=== PATIENT | female | born 1985 | race Caucasian/White ===

== ENCOUNTER 2021-02-01 14:21 | Inpatient (IN) ==
--- NOTE | 2021-02-01 14:58 | Emergency Department Note ---
Impression & Plan Leukopenia, Neutropenia, Cellulitis, Suicidal ideations ED Provider Note NAME: DON GARIBAY AGE: 35 SEX: F : 1985 ARRIVES VIA: Ambulance INFORMANT: Patient ED PROVIDER(S): Genaro King DO CHIEF COMPLAINT: Suicidal thoughts HPI: Patient is a 35-year-old female who presents the ER for passive suicidal thoughts which have been present since the end of December. She denies any current plan. She notes that she is very depressed and has a tough time a year for her. She denies any headache or change in vision. Her alcohol was in the 200s. No chest pain or shortness of breath. No belly pain nausea vomiting or diarrhea. She notes that her digits are always swollen and that is not new. ROS: See above HPI for pertinent positives & negatives. A total of 10 systems reviewed and were otherwise negative. PAST MEDICAL HISTORY:See Below PAST SURGICAL HISTORY:See Below FAMILY HISTORY:See Below SOCIAL HISTORY:See Below HOME MEDICATIONS:See Below ALLERGIES:See Below VITALS:See Below PHYSICAL EXAMINATION: GENERAL: Sitting up in bed, alert, well appearing, well nourished, no distress, non-toxic EYE EXAM: normal conjunctiva. PERRL and EOM's grossly intact. OROPHARYNX: no exudate, no erythema, lips, buccal mucosa, and tongue normal and mucous membranes are moist NECK: supple, no nuchal rigidity, no adenopathy, non-tender LUNGS: Clear to auscultation. Normal chest wall mechanics HEART: no murmurs, S1 normal and S2 normal ABDOMEN: abdomen soft, non-tender, normo-active bowel sounds, no masses, no rebound or guarding. SKIN: no rashes and no bruising UPPER EXTREMITIES: Flexion-extension the shoulders, elbows wrist grasp and abduction of digits intact. Radial pulse 2 out of 4. Multiple old scars on the arms. Digits are all swollen. Left hand with erythema over the first second and third digit tracking down to the palm. Right hand with a linear crack over the third digit at the PIP with swelling and erythema. Skin is warm and tender. LOWER EXTREMITIES: No pitting edema. NEURO EXAM: Normal sensorium, cranial nerves II-XII grossly intact, normal speech, no gross weakness of arms, no gross weakness of legs. PSYCH: Admits to suicidal ideations but no clear plan MEDICAL DECISION MAKING: Patient is a 35-year-old female sent here from the [facility] for suicidal ideations with no clear plan. IV was established blood was obtained. Labs show mild leukopenia 4000 with a neutropenia of 900. BMP with slightly elevated chloride. LFTs bilirubin and hCG was negative. Alcohol was slightly elevated at 117. Valproic acid and acetaminophen were negative. Salicylates were 4. Covid was ordered initially trying to place the patient but when she was found to be neutropenic with a cellulitis this would be difficult to place in a psychiatric facility. Discussed with her hospitalist Sidra for tachycardia for admission. Patient was given daptomycin IV. She was updated bedside. Triage Nursing notes reviewed. Limited review of prior medical records performed Vital Signs: reviewed and remarkable for no significant abnormalities Differential diagnosis: Mood disorder, infection, hypoglycemia, electrolyte abnormalities, cardiac sources, intracerebral event, toxicologic, trauma, neurologic, as well as other pathologies. ER treatment provided: See below Diagnostics interpreted by me: ECG: none Laboratory studies: As stated above and show below. Imaging studies: X-ray of the hand and elbow showed no acute fractures. Consultation(s): Discussed with Sidra for further evaluation Procedures: none Critical Care: None Past Med/Surg History Medical History (Updated 02/01/21 @ 20:41 by Genaro King DO) Alcohol abuse Anxiety Asthma Bipolar affective (11/02/13) Drug abuse GERD (gastroesophageal reflux disease) Hepatitis C HTN (hypertension) MRSA (methicillin resistant staph aureus) culture positive PTSD (post-traumatic stress disorder) Rheumatoid arthritis Seizure disorder Solitary kidney, congenital Tobacco abuse Surgical History (Updated 02/01/21 @ 18:40 by Sidra Quigley PA-C) History of fasciotomy Right forearm secondary to compartment syndrome History of tonsillectomy and adenoidectomy History of tubal ligation Family History (Updated 02/01/21 @ 18:42 by Sidra Quigley PA-C) Mother Lung cancer Grandfather (Maternal) Lung cancer Sister Ovarian cancer Social History (Updated 02/01/21 @ 18:43 by Sidra Quigley PA-C) Smoking Status: Current every day smoker Tobacco Type: Cigarettes packs per day: 1; Years Smoked: 20; Second Hand Exposure: Yes; Hx Alcohol Use: Yes Alcohol type: hard liquor Alcohol type Comment: 4-5 x a week, 1/2pint [facility] Alcohol Intake Frequency: 4 or More x per/Week Hx Substance Use: Yes Non-Prescribed Medications: Crack / Cocaine, Heroin, IV Drugs and Methamphetamines Preferred Language: Montenegrin Communication Ability: Effective marital status: / Current Living Situation: Significant Other Current Living Situation Comment: lives with boyfriend Feels Safe at Home: Yes Allergies Allergies Allergy/AdvReac Type Severity Reaction Status Date / Time cephalexin Allergy Unknown ANAPHYLAXIS Unverified 11/02/13 11:41 vancomycin Allergy Unknown RED, Verified 11/02/13 11:41 ITCHY, HOT Home Meds Home Medications Medication Instructions Recorded Confirmed albuterol sulfate 90 mcg/actuation 1 inh INHALATION QID PRN 02/01/21 02/01/21 aerosol inhaler (ProAir HFA) amlodipine 10 mg tablet (Norvasc) 10 mg PO DAILY 02/01/21 02/01/21 buprenorphine 8 mg-naloxone 2 mg 1 film SUBLINGUAL BID 02/01/21 02/01/21 sublingual film bupropion HCl 150 mg tablet,12 hr 150 mg PO BID 02/01/21 02/01/21 sustained-release diazepam 5 mg tablet 5 mg PO DAILY PRN 02/01/21 02/01/21 gabapentin 300 mg capsule 300 mg PO TID 02/01/21 02/01/21 levetiracetam 1,000 mg tablet 1,000 mg PO DAILY 02/01/21 02/01/21 omeprazole 40 mg capsule,delayed 40 mg PO DAILY 02/01/21 02/01/21 release Results & Data (ED) Vital Signs Vital Signs - 24 hr 02/01/21 14:30 02/01/21 15:22 02/01/21 17:00 Temperature 36.8 C Temperature Source Oral Pulse Rate 77 Pulse Rate [Left Finger] 78 Pulse Rhythm Regular Pulse Rhythm [Left Finger] Regular Pulse Strength Normal Pulse Strength [Left Finger] Normal Respiratory Rate 16 20 Respiratory Effort / Characteristics Non-Labored Spontaneous Non-Labored Spontaneous Respiratory Depth Normal Normal Respiratory Pattern Regular Regular Blood Pressure 101/65 Blood Pressure [Right Arm] 93/56 L 95/56 L Blood Pressure Mean 77 Blood Pressure Mean [Right Arm] 68 69 Blood Pressure Position [Right Arm] Sitting Pulse Oximetry 94 20 L Oxygen Delivery Method Room Air Room Air Sepsis Recent Fever Within 48 Hours No Sepsis New/Unexplained Change in Mental Status N/A Sepsis Action Taken by Nursing No Action Required 02/01/21 20:10 02/01/21 20:19 Temperature Temperature Source Pulse Rate Pulse Rate [Left Finger] 70 70 Pulse Rhythm Pulse Rhythm [Left Finger] Pulse Strength Pulse Strength [Left Finger] Respiratory Rate 20 18 Respiratory Effort / Characteristics Non-Labored Spontaneous Respiratory Depth Respiratory Pattern Blood Pressure Blood Pressure [Right Arm] 104/54 L Blood Pressure Mean Blood Pressure Mean [Right Arm] 70 Blood Pressure Position [Right Arm] Pulse Oximetry 94 95 Oxygen Delivery Method Room Air Room Air Sepsis Recent Fever Within 48 Hours Sepsis New/Unexplained Change in Mental Status Sepsis Action Taken by Nursing Laboratory Data Result diagrams: 02/01/21 15:05 02/01/21 15:05 Lab Results 02/01/21 02/01/21 02/01/21 Range/Units 15:05 15:05 15:05 WBC 4.10 L (4.8-10.8) K/uL RBC 4.13 L (4.2-5.4) M/uL Hgb 13.6 (12.0-16.0) g/dL Hct 40.5 (37-47) % MCV 98.1 (80-100) fL MCH 32.9 (25-34) pg MCHC 33.6 (32-36) g/dL RDW Std Deviation 46.4 H (36.4-46.3) fL RDW Coeff of Mariama 12.9 (11.5-14.5) % Plt Count 153 (130-400) K/uL MPV 10.8 H (7.4-10.4) fL Immature Gran % (Auto) 0.0 % Neut % (Auto) 22.5 % Lymph % (Auto) 60.2 % Hardee % (Auto) 10.7 % Eos % (Auto) 6.1 % Baso % (Auto) 0.5 % Neut # (Auto) 0.92 L* (1.4-6.5) K/uL Lymph # (Auto) 2.47 (1.2-3.4) K/uL Hardee # (Auto) 0.44 (0.11-0.59) K/uL Eos # (Auto) 0.25 (0-0.5) K/uL Baso # (Auto) 0.02 (0-0.2) K/uL Immature Gran # (Auto) 0.00 (0.00-0.02) K/uL Polychromasia 1+ Peripher Smr Path Cons Sodium 139 (136-145) mmol/L Potassium 3.9 (3.5-5.1) mmol/L Chloride 108 H (98-107) mmol/L Carbon Dioxide 24 (21-32) mmol/L Anion Gap 8.0 (3-11) BUN 13 (7-18) mg/dl Creatinine 0.89 (0.6-1.2) mg/dl Est Cr Clr Drug Dosing 69.8 ml/min Est GFR ( Amer) 97.3 ml/min Est GFR (Non-Af Amer) 84.0 ml/min BUN/Creatinine Ratio 14.1 (10-20) Glucose 82 (70-99) mg/dl Calcium 8.6 (8.5-10.1) mg/dl Total Bilirubin 0.3 (0.2-1) mg/dl AST 20 (15-37) U/L ALT 23 (12-78) U/L Alkaline Phosphatase 88 (45-117) U/L Total Protein 7.4 (6.4-8.2) gm/dl Albumin 3.4 (3.4-5.0) gm/dl Globulin 4.0 (2.5-4.0) gm/dl Albumin/Globulin Ratio 0.9 (0.9-2) TSH 1.180 (0.300-4.500) uIu/ml HCG, Qual (Negative) Salicylates 3.9 (2.8-20) mg/dl Acetaminophen < 2 L (10-30) ug/ml Valproic Acid (50-100) mcg/ml Ethyl Alcohol mg/dL (0-3) mg/dl COVID-19 Eval Order SARS-CoV-2, RNA, NAAT (NEGATIVE) 02/01/21 02/01/21 02/01/21 Range/Units 15:05 15:05 15:11 WBC (4.8-10.8) K/uL RBC (4.2-5.4) M/uL Hgb (12.0-16.0) g/dL Hct (37-47) % MCV (80-100) fL MCH (25-34) pg MCHC (32-36) g/dL RDW Std Deviation (36.4-46.3) fL RDW Coeff of Mariama (11.5-14.5) % Plt Count (130-400) K/uL MPV (7.4-10.4) fL Immature Gran % (Auto) % Neut % (Auto) % Lymph % (Auto) % Hardee % (Auto) % Eos % (Auto) % Baso % (Auto) % Neut # (Auto) (1.4-6.5) K/uL Lymph # (Auto) (1.2-3.4) K/uL Hardee # (Auto) (0.11-0.59) K/uL Eos # (Auto) (0-0.5) K/uL Baso # (Auto) (0-0.2) K/uL Immature Gran # (Auto) (0.00-0.02) K/uL Polychromasia Peripher Smr Path Cons Sodium (136-145) mmol/L Potassium (3.5-5.1) mmol/L Chloride (98-107) mmol/L Carbon Dioxide (21-32) mmol/L Anion Gap (3-11) BUN (7-18) mg/dl Creatinine (0.6-1.2) mg/dl Est Cr Clr Drug Dosing ml/min Est GFR ( Amer) ml/min Est GFR (Non-Af Amer) ml/min BUN/Creatinine Ratio (10-20) Glucose (70-99) mg/dl Calcium (8.5-10.1) mg/dl Total Bilirubin (0.2-1) mg/dl AST (15-37) U/L ALT (12-78) U/L Alkaline Phosphatase (45-117) U/L Total Protein (6.4-8.2) gm/dl Albumin (3.4-5.0) gm/dl Globulin (2.5-4.0) gm/dl Albumin/Globulin Ratio (0.9-2) TSH (0.300-4.500) uIu/ml HCG, Qual Negative (Negative) Salicylates (2.8-20) mg/dl Acetaminophen (10-30) ug/ml Valproic Acid < 3 L (50-100) mcg/ml Ethyl Alcohol mg/dL 117.3 H (0-3) mg/dl COVID-19 Eval Order SARS-CoV-2, RNA, NAAT (NEGATIVE) 02/01/21 02/01/21 02/01/21 Range/Units 15:22 15:22 18:17 WBC (4.8-10.8) K/uL RBC (4.2-5.4) M/uL Hgb (12.0-16.0) g/dL Hct (37-47) % MCV (80-100) fL MCH (25-34) pg MCHC (32-36) g/dL RDW Std Deviation (36.4-46.3) fL RDW Coeff of Mariama (11.5-14.5) % Plt Count (130-400) K/uL MPV (7.4-10.4) fL Immature Gran % (Auto) % Neut % (Auto) % Lymph % (Auto) % Hardee % (Auto) % Eos % (Auto) % Baso % (Auto) % Neut # (Auto) (1.4-6.5) K/uL Lymph # (Auto) (1.2-3.4) K/uL Hardee # (Auto) (0.11-0.59) K/uL Eos # (Auto) (0-0.5) K/uL Baso # (Auto) (0-0.2) K/uL Immature Gran # (Auto) (0.00-0.02) K/uL Polychromasia Peripher Smr Path Cons Cancelled Sodium (136-145) mmol/L Potassium (3.5-5.1) mmol/L Chloride (98-107) mmol/L Carbon Dioxide (21-32) mmol/L Anion Gap (3-11) BUN (7-18) mg/dl Creatinine (0.6-1.2) mg/dl Est Cr Clr Drug Dosing ml/min Est GFR ( Amer) ml/min Est GFR (Non-Af Amer) ml/min BUN/Creatinine Ratio (10-20) Glucose (70-99) mg/dl Calcium (8.5-10.1) mg/dl Total Bilirubin (0.2-1) mg/dl AST (15-37) U/L ALT (12-78) U/L Alkaline Phosphatase (45-117) U/L Total Protein (6.4-8.2) gm/dl Albumin (3.4-5.0) gm/dl Globulin (2.5-4.0) gm/dl Albumin/Globulin Ratio (0.9-2) TSH (0.300-4.500) uIu/ml HCG, Qual (Negative) Salicylates (2.8-20) mg/dl Acetaminophen (10-30) ug/ml Valproic Acid (50-100) mcg/ml Ethyl Alcohol mg/dL (0-3) mg/dl COVID-19 Eval Order Covid19 [facility] SARS-CoV-2, RNA, NAAT NEGATIVE (NEGATIVE) Administered Medications Albuterol (Albuterol 0.083% Nebu Soln 3 Ml Vial) 2.5 mg NEB TID TONY Stop: 03/03/21 20:59 Last Admin: 02/01/21 20:19 Dose: 2.5 mg Documented by: [id number] Discontinued Medications Gabapentin (Gabapentin 1200mg Alcohol Withdrawal Load) 1 ea PO NOW STA; Protocol Stop: 02/01/21 18:29 Last Admin: 02/01/21 19:43 Dose: Not Given Documented by: [id number] Gabapentin (Gabapentin 600 Mg Tab) 1,200 mg PO NOW ONE Stop: 02/01/21 19:46 Last Admin: 02/01/21 19:41 Dose: 1,200 mg Documented by: [id number] Daptomycin 200 mg/ Syringe 4 mls @ 2 mls/min IV NOW ONE; Protocol Stop: 02/01/21 17:03 Last Admin: 02/01/21 20:11 Dose: 2 mls/min Documented by: [id number] Aztreonam 2,000 mg/ Dextrose 120 mls @ 100 mls/hr IV NOW STA; Protocol Stop: 02/01/21 18:15 Last Admin: 02/01/21 19:42 Dose: 100 mls/hr Documented by: [id number] Lorazepam (Ativan) 1 mg in 2 mls @ 2 mls/min IV NOW STA Stop: 02/01/21 17:46 Last Admin: 02/01/21 19:14 Dose: 2 mls/min Documented by: [id number] Multivitamins 10 ml/ Thiamine HCl 100 mg/ Folic Acid 1 mg/Sodium Chloride 1,011.2 mls @ 500 mls/hr IV .Q2H2M ONE Stop: 02/01/21 20:11 Last Admin: 02/01/21 19:42 Dose: 500 mls/hr Documented by: [id number] Imaging Data Radiologist's Impression: Elbow X-Ray 02/01/21 14:52 XR elbow LT min 3V routine CLINICAL HISTORY: Left elbow pain. COMPARISON STUDY: None. FINDINGS: There is a left elbow effusion. Calcific tendinitis within the common extensor tendon. No acute fracture or dislocation within the left elbow. Well- corticated ossific density adjacent to the coronoid process of the ulna appears to represent an old fracture. IMPRESSION: 1. Well-corticated small ossific density adjacent to the coronoid process of the ulna. This likely represents an old fracture. 2. Nonspecific left elbow effusion. This can be seen in the setting of an occult fracture if the patient has had recent trauma. Otherwise, this could represent i nflammatory process. 3. Calcific tendinitis within the common extensor tendon. ACT 112: Negative or not required by law. Electronically signed by: Payam Woods M.D. 02/01/2021 3:55 PM Hand X-Ray 02/01/21 14:52 LEFT HAND 3 VIEWS HISTORY: Left fifth finger pain and swelling. COMPARISON: Left hand 11/02/2013. FINDINGS: There is no fracture or dislocation. Diffuse soft tissue swelling. A 6 mm linear metallic foreign body within the dorsal soft tissues of the distal forearm/wrist. Mild degenerative changes within the interphalangeal joint of the fifth digit. IMPRESSION: 1. No fractures within the left hand. 2. Diffuse soft tissue swelling. 3. No change in a 6 mm linear metallic foreign body within the dorsal soft tissues of the distal forearm/wrist. ACT 112: Negative or not required by law. Electronically signed by: Payam Woods M.D. 02/01/2021 3:[address] 02/01/21 17:[address], LEFT FOREARM CT CT DOSE: 1232.01 mGy.cm HISTORY: Left forearm pain. L elbow pain, ? Occult fracture TECHNIQUE: Multiaxial CT images of the left elbow and left forearm were performed and reformatted in the sagittal and coronal plane without the use of contrast. A dose lowering technique was utilized adhering to the principles of ALARA. COMPARISON: Left elbow and left hand radiograph 02/01/2021. FINDINGS: There are suboptimal resolution of the bony structures. There is a small well-corticated ossific density adjacent to the coronoid process of the ulna. This is consistent with an old fracture. There is also a punctate ossific density posterior to the radial head consistent with an age-indeterminate chip type fracture at the radial head. Otherwise, no definite acute fracture or dislocation within the elbow. No significant elbow effusion. No acute fracture or dislocation within the mid to distal radius or ulna. A 6 mm linear radiopaque foreign body within the superficial soft tissues dorsal to the distal ulna is again noted. This remains unchanged. IMPRESSION: 1. Small well-corticated ossific density adjacent to the coronoid process of the ulna consistent with an old nonunited fracture. 2. Punctate ossific density posterior to the radial head consistent with an age-indeterminate chip type fracture. 3. No definite elbow effusion to suggest an acute injury. 4. No acute fractures within the mid to distal forearm. 5. Stable 6 mm linear radiopaque foreign body within the superficial soft tissues dorsal to the distal ulna. ACT 112: Negative or not required by law. Electronically signed by: Payam Woods M.D. 02/01/2021 7:[address] 02/01/21 18:[address], LEFT FOREARM CT CT DOSE: 1232.01 mGy.cm HISTORY: Left forearm pain. L elbow pain, ? Occult fracture TECHNIQUE: Multiaxial CT images of the left elbow and left forearm were performed and reformatted in the sagittal and coronal plane without the use of contrast. A dose lowering technique was utilized adhering to the principles of ALARA. COMPARISON: Left elbow and left hand radiograph 02/01/2021. FINDINGS: There are suboptimal resolution of the bony structures. There is a small well-corticated ossific density adjacent to the coronoid process of the ulna. This is consistent with an old fracture. There is also a punctate ossific density posterior to the radial head consistent with an age-indeterminate chip type fracture at the radial head. Otherwise, no definite acute fracture or dislocation within the elbow. No significant elbow effusion. No acute fracture or dislocation within the mid to distal radius or ulna. A 6 mm linear radiopaque foreign body within the superficial soft tissues dorsal to the distal ulna is again noted. This remains unchanged. IMPRESSION: 1. Small well-corticated ossific density adjacent to the coronoid process of the ulna consistent with an old nonunited fracture. 2. Punctate ossific density posterior to the radial head consistent with an age- indeterminate chip type fracture. 3. No definite elbow effusion to suggest an acute injury. 4. No acute fractures within the mid to distal forearm. 5. Stable 6 mm linear radiopaque foreign body within the superficial soft tissues dorsal to the distal ulna. ACT 112: Negative or not required by law. Electronically signed by: Payam Woods M.D. 02/01/2021 7:02 PM Discharge Plan Visit Data Chief Complaint: Medical Clearance Stated Complaint: MEDICAL CLEARANCE FOR RITA. ED Provider: Genaro King Discharge Problem: Leukopenia, Neutropenia, Cellulitis, Suicidal ideations Forms Stand Alone Forms: [employer] Prescriptions Prescriptions: No Action diazepam 5 mg tablet 5 mg PO DAILY PRN (Reason: Anxiety) RF: 0 buprenorphine-naloxone 8-2 mg film 1 film sublingual BID RF: 0 amlodipine [Norvasc] 10 mg Tablet 10 mg PO DAILY RF: 0 gabapentin 300 mg Capsule 300 mg PO TID RF: 0 bupropion HCl 150 mg tablet sustained-release 12 hr 150 mg PO BID RF: 0 omeprazole 40 mg capsule,delayed release(DR/EC) 40 mg PO DAILY RF: 0 albuterol sulfate [ProAir HFA] 90 mcg/actuation Hfa Aerosol Inhaler 1 inh INHALATION QID PRN (Reason: sob/wheezing) RF: 0 levetiracetam 1,000 mg tablet 1,000 mg PO DAILY RF: 0 Referrals Referrals: Nakul Urena [Non-Staff] - Discharge Problem: Leukopenia Qualifiers: Leukopenia type: unspecified Qualified Code(s): D72.819 - Decreased white blood cell count, unspecified Neutropenia Qualifiers: Neutropenia type: unspecified Qualified Code(s): D70.9 - Neutropenia, unspecified Cellulitis Qualifiers: Site of cellulitis: unspecified site Qualified Code(s): L03.90 - Cellulitis, unspecified
[2021-02-01 15:20] LABS: Hematocrit (blood only) 40.5 % (37-47); Hemoglobin 13.6 g/dL (12.0-16.0); Mean Corpuscular Hemoglobin 32.9 pg (25-34); Mean Corpuscular Hgb Conc 33.6 g/dL (32-36); Mean Corpuscular Volume 98.1 fL (80-100); Mean Platelet Volume 10.8 fL (7.4-10.4); Platelet Count 153 K/uL (130-400); RDW Coefficient of Variation 12.9 % (11.5-14.5); RDW Standard Deviation 46.4 fL (36.4-46.3); Red Blood Count 4.13 M/uL (4.2-5.4)
[2021-02-01 15:42] LABS: Albumin Level 3.4 gm/dl (3.4-5.0); BUN Creatinine Ratio 14.1 (10-20); Calcium 8.6 mg/dl (8.5-10.1); Creatinine Clr Calc Pharmacy 69.8 ml/min; Est GFR (African American) 97.3 ml/min; Potassium 3.9 mmol/L (3.5-5.1)
--- NOTE | 2021-02-01 15:49 | XRay Report ---
LEFT HAND 3 VIEWS HISTORY: Left fifth finger pain and swelling. COMPARISON: Left hand 11/02/2013. FINDINGS: There is no fracture or dislocation. Diffuse soft tissue swelling. A 6 mm linear metallic f oreign body within the dorsal soft tissues of the distal forearm/wrist. Mild degenerative changes wit hin the interphalangeal joint of the fifth digit. IMPRESSION: 1. No fractures within the left hand. 2. Diffuse soft tissue swelling. 3. No change in a 6 mm linear metallic foreign body within the dorsal soft tissues of the distal fore arm/wrist. ACT 112: Negative or not required by law. Electronically signed by: Payam Woods M.D. 02/01/2021 3:48 PM
[2021-02-01 15:53] LABS: Albumin Globulin Ratio 0.9 (0.9-2); Bilirubin,Total 0.3 mg/dl (0.2-1); Thyroid Stimulating Hormone 1.18 uIu/ml (0.300-4.500); Total Protein 7.4 gm/dl (6.4-8.2)
[2021-02-01 15:54] LABS: Acetaminophen < 2 ug/ml (10-30); Salicylate 3.9 mg/dl (2.8-20)
--- NOTE | 2021-02-01 15:57 | XRay Report ---
XR elbow LT min 3V routine CLINICAL HISTORY: Left elbow pain. COMPARISON STUDY: None. FINDINGS: There is a left elbow effusion. Calcific tendinitis within the common extensor tendon. No a cute fracture or dislocation within the left elbow. Well-corticated ossific density adjacent to the c oronoid process of the ulna appears to represent an old fracture. IMPRESSION: 1. Well-corticated small ossific density adjacent to the coronoid process of the ulna. This likely re presents an old fracture. 2. Nonspecific left elbow effusion. This can be seen in the setting of an occult fracture if the keith ent has had recent trauma. Otherwise, this could represent inflammatory process. 3. Calcific tendinitis within the common extensor tendon. ACT 112: Negative or not required by law. Electronically signed by: Payam Woods M.D. 02/01/2021 3:55 PM
[2021-02-01 16:01] LABS: Basophils # (auto) 0.02 K/uL (0-0.2); Basophils % (auto) 0.5 %; Eosinophils # (auto) 0.25 K/uL (0-0.5); Eosinophils % (auto) 6.1 %; Lymphocytes # (auto) 2.47 K/uL (1.2-3.4); Lymphocytes % (auto) 60.2 %; Monocytes # (auto) 0.44 K/uL (0.11-0.59); Monocytes % (auto) 10.7 %; Neutrophils # (auto) 0.92 K/uL (1.4-6.5); Neutrophils % (auto) 22.5 %; Polychromasia 1+
[2021-02-01 16:23] LABS: Pregnancy Test, Serum Negative (Negative)
[2021-02-01] MEDS ORDERED: DAPTOmycin 200 MG in SYRINGE 0 ML IV ONE (17:02)
[2021-02-01] MEDS ORDERED: AZTREONAM 2,000 MG in DEXTROSE 5% 100 ML IV STA (17:04)
[2021-02-01] MEDS ORDERED: LORazepam 1 MG/2 ML VIAL IV STA (17:45)
[2021-02-01] MEDS ORDERED: MULTI-VITAMIN INFUSION 10 ML, THIAMINE HCL 100 MG, FOLIC ACID 1 MG in SODIUM CHLORIDE 0... IV ONE (18:10)
[2021-02-01] MEDS ORDERED: CONSULT PHARMACY STA (18:10)
[2021-02-01] MEDS ORDERED: GABAPENTIN 1200MG ALCOHOL WITHDRAWAL LOAD PO STA (18:28)
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
--- NOTE | 2021-02-01 19:03 | CT Scan Report ---
LEFT ELBOW CT, LEFT FOREARM CT CT DOSE: 1232.01 mGy.cm HISTORY: Left forearm pain. L elbow pain, ? Occult fracture TECHNIQUE: Multiaxial CT images of the left elbow and left forearm were performed and reformatted in the sagittal and coronal plane without the use of contrast. A dose lowering technique was utilized a dhering to the principles of ALARA. COMPARISON: Left elbow and left hand radiograph 02/01/2021. FINDINGS: There are suboptimal resolution of the bony structures. There is a small well-corticated os sific density adjacent to the coronoid process of the ulna. This is consistent with an old fracture. There is also a punctate ossific density posterior to the radial head consistent with an age-indeterm inate chip type fracture at the radial head. Otherwise, no definite acute fracture or dislocation wit hin the elbow. No significant elbow effusion. No acute fracture or dislocation within the mid to dist al radius or ulna. A 6 mm linear radiopaque foreign body within the superficial soft tissues dorsal t o the distal ulna is again noted. This remains unchanged. IMPRESSION: 1. Small well-corticated ossific density adjacent to the coronoid process of the ulna consistent with an old nonunited fracture. 2. Punctate ossific density posterior to the radial head consistent with an age-indeterminate chip ty pe fracture. 3. No definite elbow effusion to suggest an acute injury. 4. No acute fractures within the mid to distal forearm. 5. Stable 6 mm linear radiopaque foreign body within the superficial soft tissues dorsal to the dista l ulna. ACT 112: Negative or not required by law. Electronically signed by: Payam Woods M.D. 02/01/2021 7:02 PM
[2021-02-01] MEDS ORDERED: GABAPENTIN 600 MG TAB PO ONE (19:45)
[2021-02-01] MEDS: ALBUTEROL 0.083% NEBU SOLN 3 ML VIAL NEB SCH (20:19)
[2021-02-01] MEDS ORDERED: LORazepam 0.5 MG/1 ML VIAL IV STA (23:22)
[2021-02-02] MEDS ORDERED: POLYETHYLENE (MIRALAX) 17 GM PACK PO PRN (00:24)
[2021-02-02] MEDS ORDERED: MAGNESIUM HYDROXIDE SUSP 30 ML UDC PO PRN (00:24)
[2021-02-02] MEDS ORDERED: LACTATED RINGER'S 1,000 ML IV SCH (00:24)
[2021-02-02] MEDS ORDERED: GABAPENTIN 600 MG TAB PO ONE (00:24)
[2021-02-02] MEDS ORDERED: LORazepam 1 MG/2 ML VIAL IV PRN (00:24)
[2021-02-02] MEDS ORDERED: ALUMINUM/MAGNESIUM SUSP 30 ML UDC PO PRN (00:24)
[2021-02-02] MEDS ORDERED: ONDANSETRON INJ 2 MG/ML 2 ML VIAL IV PRN (00:24)
[2021-02-02] MEDS ORDERED: AZTREONAM CONSULT ACTIVE PRN (00:46)
[2021-02-02] MEDS ORDERED: ALBUTEROL HFA 8 GM INHALER INH PRN (01:04)
[2021-02-02] MEDS: BUPRENORPHINE/NALOXONE 8/2 MG TAB SL SCH ×3 (01:50→20:49)
[2021-02-02] MEDS: GABAPENTIN 600 MG TAB PO SCH ×3 (01:50→19:43)
[2021-02-02] MEDS: NICOTINE 21 MG/24 HR TDSY TD SCH ×2 (01:50→10:30)
[2021-02-02] MEDS: buPROPion SR 150 MG TABCR PO SCH ×3 (01:50→20:49)
[2021-02-02] MEDS: FOLIC ACID 1 MG TAB PO SCH ×2 (01:51→10:32)
[2021-02-02] MEDS: THIAMINE HCL 100 MG TAB PO SCH ×2 (01:51→10:32)
[2021-02-02 02:57] LABS: Amphetamines+Metham, Urine Neg (Neg); Barbiturates, Urine Neg (Neg); Benzodiazepine, Urine Neg (Neg); Cocaine, Urine Neg (Neg); MDMA (Ecstacy), Urine Pos (Neg); Methadone, Urine Pos (Neg); Opiate, Urine Neg (Neg); Phencyclidine, Urine Neg (Neg)
[2021-02-02 03:00] LABS: Appearance Urine Clear (Clear); Bilirubin Urine Negative (Negative); Blood Urine Negative (Negative); Color Urine Yellow; Glucose Urine UA Negative (Negative); Ketones Urine Negative (Negative); Leukocyte Esterase Urine Negative (Negative); Nitrite Urine Negative (Negative); Protein Urine Negative (Negative); Specific Gravity Urine 1.014 (1.000-1.030); Urobilinogen Urine Negative (Negative); pH Urine 5.5 (4.5-7.5)
[2021-02-02] MEDS: AZTREONAM 2,000 MG in DEXTROSE 5% 100 ML IV SCH ×3 (03:55→19:59)
[2021-02-02] MEDS: diazePAM 5 MG TABLET PO PRN ×2 (04:05→10:00)
[2021-02-02] MEDS: ALBUTEROL 0.083% NEBU SOLN 3 ML VIAL NEB SCH ×2 (07:30→13:50)
[2021-02-02 08:54] LABS: Basophils # (auto) 0.01 K/uL (0-0.2); Basophils % (auto) 0.3 %; Eosinophils # (auto) 0.17 K/uL (0-0.5); Eosinophils % (auto) 4.4 %; Hematocrit (blood only) 39.1 % (37-47); Hemoglobin 13.2 g/dL (12.0-16.0); Immature Granulocytes # (auto) 0.01 K/uL (0.00-0.02); Immature Granulocytes % (auto) 0.3 %; Lymphocytes % (auto) 41.7 %; Mean Corpuscular Hgb Conc 33.8 g/dL (32-36); Mean Corpuscular Volume 97.8 fL (80-100); Mean Platelet Volume 10.6 fL (7.4-10.4); Monocytes # (auto) 0.38 K/uL (0.11-0.59); Monocytes % (auto) 9.9 %; Neutrophils # (auto) 1.67 K/uL (1.4-6.5); Neutrophils % (auto) 43.4 %; Platelet Count 124 K/uL (130-400); RDW Coefficient of Variation 12.6 % (11.5-14.5); RDW Standard Deviation 45.2 fL (36.4-46.3); White Blood Count 3.84 K/uL (4.8-10.8)
--- NOTE | 2021-02-02 08:58 | XRay Report ---
SINGLE VIEW CHEST CLINICAL HISTORY: Wheezing and rhonchi. FINDINGS: An AP, portable, upright chest radiograph is obtained. No prior studies are available for c omparison at the time of dictation. The cardiomediastinal silhouette is unremarkable. The lungs and pleural spaces are clear. No pneumothorax is seen. The bony thorax is grossly intact. IMPRESSION: No active disease in the chest. ACT 112: Negative or not required by law. Electronically signed by: Mario Winston M.D. 02/02/2021 8:57 AM
[2021-02-02 09:10] LABS: BUN Creatinine Ratio 14.6 (10-20); Calcium 8.9 mg/dl (8.5-10.1); Creatinine Clr Calc Pharmacy 67.5 ml/min; Est GFR (African American) 93.5 ml/min; Est GFR (Non-African American) 80.7 ml/min; Magnesium 1.9 mg/dl (1.8-2.4); Potassium 3.6 mmol/L (3.5-5.1)
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
[2021-02-02] MEDS: levETIRAcetam 500 MG TAB PO SCH (10:29)
[2021-02-02] MEDS: PANTOprazole 40 MG TAB PO SCH (10:30)
[2021-02-02] MEDS: ACETAMINOPHEN 325 MG TAB PO PRN ×2 (10:39→20:10)
[2021-02-02] MEDS: ENOXAPARIN INJ 40 MG/0.4 ML SYR SQ SCH (10:40)
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
--- NOTE | 2021-02-02 13:26 | Hospitalist Progress Note ---
Date of Service February 02, 2021 Assessment & Plan (1) Suicidal ideations: (2) Cellulitis of right middle finger: (3) Left elbow pain: (4) Alcohol intoxication: (5) Seizure disorder: (6) PTSD (post-traumatic stress disorder): (7) Anxiety: (8) HTN (hypertension): (9) Alcohol abuse: (10) Tobacco abuse: (11) Asthma: (12) DVT prophylaxis: (13) Bipolar affective: Plan: per JUS Sidra Fraser notes: This is a 35-year-old female who has significant past medical history of drug abuse, current alcohol abuse, tobacco abuse, solitary kidney, asthma, rheumatoid arthritis, hepatitis C completed treatment, bipolar disorder, PTSD, anxiety, hypertension, seizure disorder, GERD who presents to ED at the referral from [facility] for medical clearance. Suicidal ideation Currently denies thoughts of harming self or others, but prior to arrival wanted to kill self, but no plan Suicide precautions One-to-one observation Consult psychiatry was supposed to be admitted to [place] Right third finger cellulitis, questionable tenosynovitis Open wound to volar aspect of third finger at PIP History of MRSA Neutropenia History of RA She does not meet SIRS criteria on admission Administer broad-spectrum IV antibiotics with daptomycin and aztreonam secondary to neutropenia and history of MRSA leukopenia improving BC pending clinically, digit appears to be improving non surgical per Ortho continue Dapto + Aztreonam for now will consult Label Paster Dr. Corrales Left elbow pain secondary to prior fall 3 weeks ago X-ray concerning for old fracture and or occult fracture Obtain CT of left elbow and forearm Consult orthopedics 02/02 per Ortho: CT scan revealing no evidence of effusion for acute fracture. Evidence of an old coronoid avulsion fracture. Age undetermined radial head chip/avulsion fracture. I will have Dr. Driver review the films today. Continue left upper extremity sling at this time. Ice for comfort. Alcohol abuse Alcohol level on admission 117.3, last drink this morning a half a pint of [facility] comfort AWSS protocol, placed on gabapentin taper home dose of gabapentin is 300mg tid Prn IV ativan, 1mg of IV ativan x 1 now 02/02 no overt signs of withdrawal at this point continue Gabapentin protocol HTN on amlodipine hold for now in setting of low blood pressure Asthma pt with wheezing on exam that does improve with coughing albuterol nebs TID no acute exacerbation, likely 2/2 to smoking 02/02 no respiratory symptoms add Flovent Seizure Disorder continue keppra, no seizure for > 10 years seizure precautions Tobacco Abuse nicotine patch encourage smoking cessation Bipolar depression PTSD Anxiety hx of IVDA Suboxone therapy Continue Wellbutrin Patient wishes to be admitted to [facility] due to increased depression and for medication management as she previously had been on antipsychotics continue suboxone - PDMP verified Dispo: Med tele, pt wishing to go to [facility] for psychiatric eval/med management when medically cleared PCP: None FULL CODE plan of care discussed with patient in detail and at length all questions answered she is understanding, agreeable, comfortable with the plan of care Admission and Anticipated Discharge Date Admission Date: February 01, 2021 Subjective ff up for r 3rd digit cellulitis, etc seen resting in bed, RN Shirley at bedside throughout whole encounter sitting up in bed, comfortable states she feels ok overall r hand and 3rd digit pain improving reports b/l wrist, elbow, ankle pain, worse with movement no fever/chills has mild tremors, anxiety, no hallucinations no chest pain, dyspnea, palpitations, dizziness no abdominal pain, nausea/vomiting reports depression but no suicidal ideation no other symptoms Review of Systems Review of Systems: all noted and negative except for above Physical Exam Physical Exam: General- oriented x 3, not in distress, speaks in sentences with no effort or accessory muscle use Eyes- anicteric Neck- no JVD Lungs-(+) BL wheezing Heart- normal rate, regular rhythm; no murmurs Abdomen- normal bowel sounds, nondistended, soft, nontender Extremities- Right 3rd digit- mild edema, erythema, warmth, tenderness, poor ROM BL hand edema, wrist tenderness BL ankle mild warmth and tenderness no pretibial edema, no calf tenderness Neuro- alert, oriented x 3; no gross focal neurologic deficits Skin- warm & dry Psych- appears somewhat anxious Results & Data Results & Data ([facility]) Vital Signs (Past 12 Hours) Vital Signs Temp Pulse Pulse Resp BP Pulse Ox 02/02/21 11:56 37 C 70 16 123/75 93 02/02/21 08:15 78 02/02/21 07:30 70 16 92 02/02/21 07:04 37 C 67 18 123/85 92 02/02/21 04:06 37 C 72 18 119/70 91 02/02/21 02:30 76 all noted and reviewed including below
[2021-02-02] MEDS ORDERED: ALBUTEROL 0.083% NEBU SOLN 3 ML VIAL NEB PRN (14:31)
[2021-02-02] MEDS: DAPTOmycin 200 MG in SYRINGE 0 ML IV SCH (19:59)
[2021-02-03] MEDS: GABAPENTIN 600 MG TAB PO SCH ×3 (00:22→19:43)
[2021-02-03] MEDS: AZTREONAM 2,000 MG in DEXTROSE 5% 100 ML IV SCH ×3 (04:21→19:43)
[2021-02-03] MEDS: diazePAM 5 MG TABLET PO PRN (08:35)
[2021-02-03] MEDS: ENOXAPARIN INJ 40 MG/0.4 ML SYR SQ SCH (08:35)
[2021-02-03] MEDS: THIAMINE HCL 100 MG TAB PO SCH (08:35)
[2021-02-03] MEDS: BUPRENORPHINE/NALOXONE 8/2 MG TAB SL SCH ×2 (08:35→20:05)
[2021-02-03] MEDS: FOLIC ACID 1 MG TAB PO SCH (08:35)
[2021-02-03] MEDS: levETIRAcetam 500 MG TAB PO SCH (08:35)
[2021-02-03] MEDS: NICOTINE 21 MG/24 HR TDSY TD SCH (08:35)
[2021-02-03] MEDS: PANTOprazole 40 MG TAB PO SCH (08:35)
[2021-02-03] MEDS: buPROPion SR 150 MG TABCR PO SCH ×2 (08:35→20:05)
[2021-02-03] MEDS: ACETAMINOPHEN 325 MG TAB PO PRN ×2 (08:35→17:43)
[2021-02-03 09:19] LABS: Hematocrit (blood only) 40.1 % (37-47); Hemoglobin 13.7 g/dL (12.0-16.0); Mean Corpuscular Hemoglobin 32.9 pg (25-34); Mean Corpuscular Hgb Conc 34.2 g/dL (32-36); Mean Corpuscular Volume 96.2 fL (80-100); RDW Coefficient of Variation 12.7 % (11.5-14.5); RDW Standard Deviation 44.7 fL (36.4-46.3); Red Blood Count 4.17 M/uL (4.2-5.4); White Blood Count 3.04 K/uL (4.8-10.8)
[2021-02-03 09:37] LABS: Mean Platelet Volume 11.8 fL (7.4-10.4); Platelet Count 86 K/uL (130-400)
[2021-02-03 09:43] LABS: BUN Creatinine Ratio 14.8 (10-20); Creatinine Clr Calc Pharmacy 69.3 ml/min; Est GFR (African American) 87.7 ml/min; Est GFR (Non-African American) 75.7 ml/min; Potassium 4.4 mmol/L (3.5-5.1)
[2021-02-03 10:02] LABS: Basophils # (auto) 0.01 K/uL (0-0.2); Basophils % (auto) 0.3 %; Eosinophils # (auto) 0.14 K/uL (0-0.5); Eosinophils % (auto) 4.6 %; Immature Granulocytes # (auto) 0.01 K/uL (0.00-0.02); Immature Granulocytes % (auto) 0.3 %; Lymphocytes # (auto) 1.47 K/uL (1.2-3.4); Lymphocytes % (auto) 48.4 %; Monocytes # (auto) 0.44 K/uL (0.11-0.59); Monocytes % (auto) 14.5 %; Neutrophils # (auto) 0.97 K/uL (1.4-6.5); Neutrophils % (auto) 31.9 %; Platelet Estimate Decreased (Normal)
--- NOTE | 2021-02-03 10:15 | Post Operative Brief Note ---
Immediate Post Op Note v1 Date of Surgery February 03, 2021 Pre & Post Diagnosis Left intertrochanteric hip fracture I identified the patient and participated in the time-out.: Yes Procedure Left intertrochanteric hip nail Surgeon Tolu Shen MD Phlebotomist Physician payroll administrative assistant Jose Sarah Estimated Blood Loss 50 Findings Consistent with Post-Op Diagnosis Anesthesia Type [facility]
[2021-02-03] MEDS: FLUTICASONE FUROATE 200MCG 14 PUFFS/INHALER INH SCH (13:16)
[2021-02-03] MEDS: LORazepam 0.5 MG TAB PO PRN ×2 (14:56→21:37)
--- NOTE | 2021-02-03 15:49 | Hospitalist Progress Note ---
Date of Service February 03, 2021 Assessment & Plan (1) Suicidal ideations: (2) Cellulitis of right middle finger: (3) Left elbow pain: (4) Alcohol intoxication: (5) Seizure disorder: (6) PTSD (post-traumatic stress disorder): (7) Anxiety: (8) HTN (hypertension): (9) Alcohol abuse: (10) Tobacco abuse: (11) Asthma: (12) DVT prophylaxis: (13) Bipolar affective: Plan: This is a 35-year-old female who has significant past medical history of drug abuse, current alcohol abuse, tobacco abuse, solitary kidney, asthma, rheumatoid arthritis, hepatitis C completed treatment, bipolar disorder, PTSD, anxiety, hypertension, seizure disorder, GERD who presents to ED at the referral from [facility] for medical clearance. Suicidal ideation Currently denies thoughts of harming self or others, but prior to arrival wanted to kill self, but no plan Suicide precautions One-to-one observation Consulted psychiatry, no further intervention at this time Right third finger cellulitis Open wound to volar aspect of third finger at PIP History of MRSA Neutropenia She does not meet SIRS criteria on admission Administer broad-spectrum IV antibiotics with daptomycin and aztreonam secondary to neutropenia and history of MRSA BC negative so far wound culture Staph digit and hand edema, erythema improving wound healing well continue Dapto + Cefepime Neutropenia Thrombocytopenia unclear etiology Peripheral smear nonspecific discussed with Dr. Dillard repairer shoe sticks- recommend checking Folate, Vit b 12, LDH monitor closely Intermittent Abdominal Pain suspect underlying gastritis, ulcer check CT abdomen continue Protonix Left elbow pain secondary to prior fall [address] arm: 1. Small well-corticated ossific density adjacent to the coronoid process of the ulna consistent with an old nonunited fracture. 2. Punctate ossific density posterior to the radial head consistent with an age- indeterminate chip type fracture. 3. No definite elbow effusion to suggest an acute injury. 4. No acute fractures within the mid to distal forearm. 5. Stable 6 mm linear radiopaque foreign body within the superficial soft tissues dorsal to the distal ulna. per Ortho: CT scan demonstrates small sized type I subacute conoid fracture and a more recent/acute avulsion fracture radial head. Continue nonoperative management with a sling, NSAIDs as needed if approved by medical service and alternate heat and cold for comfort. Follow-up with her orthopedic surgeon in her home area upon return. Alcohol abuse Alcohol level on admission 117.3, last drink this morning a half a pint of [facility] protocol, placed on gabapentin taper home dose of gabapentin is 300mg tid Prn IV ativan no signs of overt withdrawal at this time monitor HTN on amlodipine hold for now in setting of low blood pressure Asthma pt with wheezing on exam that does improve with coughing albuterol nebs TID Flovent started improving Seizure Disorder continue keppra, no seizure for > 10 years seizure precautions Tobacco Abuse nicotine patch and gum encourage smoking cessation Bipolar depression PTSD Anxiety hx of IVDA Suboxone therapy Continue Wellbutrin Patient wishes to be admitted to [facility] due to increased depression and for medication management as she previously had been on antipsychotics continue suboxone - PDMP verified Dispo: Med tele, pt wishing to go to [facility] for psychiatric eval/med management when medically cleared PCP: None FULL CODE plan of care discussed with patient in detail and at length all questions answered she is understanding, agreeable, comfortable with the plan of care Admission and Anticipated Discharge Date Admission Date: February 01, 2021 Subjective ff up for finger cellulitis, leukopenia, etc seen with RADHA Woodard at bedside throughout whole encounter states she feels anxious today no tremors, sweats, hallucinations right hand and 3rd digit has minimal discomfort hand, wrist, ankle pain better report epigastric pain, intermittent the past 3 months, worse with diet had 15 lbs weight loss no melena/hematochezia, emesis none during admission no other symptoms Review of Systems Review of Systems: all noted and negative except for above Physical Exam Physical Exam: General- oriented x 3, not in distress, speaks in sentences with no effort or accessory muscle use Eyes- anicteric Neck- no JVD Lungs- mild wheeze b/l good air entry Heart- normal rate, regular rhythm; no murmurs Abdomen- normal bowel sounds, nondistended, soft, nontender Extremities- right hand: mild edema, 3rd digit- no erythema/warmth/tenderness, small wound healing well no pretibial edema, no calf tenderness no joint edema, erythema, warmth, tenderness Neuro- alert, oriented x 3; no gross focal neurologic deficits Skin- warm & dry Results & Data Results & Data ([facility]) Vital Signs (Past 12 Hours) Vital Signs Temp Pulse Resp BP Pulse Ox 02/03/21 10:58 36.5 C 78 18 122/86 96 02/03/21 08:39 36.5 C 73 18 118/86 95 02/03/21 04:10 36.4 C L 73 18 125/83 95 all noted and reviewed including below
[2021-02-03] MEDS: NICOTINE POLACRILEX 2 MG GUM MT PRN (17:43)
[2021-02-03 17:44] LABS: Folate (Folic Acid) > 20.00 ng/ml (>5.38); Vitamin B12 653 pg/ml (193-986)
[2021-02-03] MEDS: DAPTOmycin 200 MG in SYRINGE 0 ML IV SCH (19:43)
[2021-02-04] MEDS: AZTREONAM 2,000 MG in DEXTROSE 5% 100 ML IV SCH (03:09)
[2021-02-04] MEDS: BUPRENORPHINE/NALOXONE 8/2 MG TAB SL SCH ×2 (06:12→18:51)
[2021-02-04 07:13] LABS: Hematocrit (blood only) 40.5 % (37-47); Hemoglobin 13.8 g/dL (12.0-16.0); Mean Corpuscular Hemoglobin 33.3 pg (25-34); Mean Corpuscular Hgb Conc 34.1 g/dL (32-36); Mean Corpuscular Volume 97.8 fL (80-100); Mean Platelet Volume 10.7 fL (7.4-10.4); Platelet Count 150 K/uL (130-400); RDW Coefficient of Variation 12.9 % (11.5-14.5); RDW Standard Deviation 45.9 fL (36.4-46.3); Red Blood Count 4.14 M/uL (4.2-5.4); White Blood Count 3.84 K/uL (4.8-10.8)
[2021-02-04 07:28] LABS: Basophils # (auto) 0.03 K/uL (0-0.2); Basophils % (auto) 0.8 %; Eosinophils # (auto) 0.16 K/uL (0-0.5); Eosinophils % (auto) 4.2 %; Immature Granulocytes # (auto) 0.01 K/uL (0.00-0.02); Immature Granulocytes % (auto) 0.3 %; Lymphocytes # (auto) 1.78 K/uL (1.2-3.4); Lymphocytes % (auto) 46.4 %; Monocytes # (auto) 0.53 K/uL (0.11-0.59); Monocytes % (auto) 13.8 %; Neutrophils # (auto) 1.33 K/uL (1.4-6.5); Neutrophils % (auto) 34.5 %
[2021-02-04 07:39] LABS: BUN Creatinine Ratio 13.9 (10-20); Est GFR (African American) 77.9 ml/min; Est GFR (Non-African American) 67.2 ml/min; Potassium 3.9 mmol/L (3.5-5.1)
[2021-02-04 07:42] LABS: Albumin Globulin Ratio 0.7 (0.9-2); Bilirubin,Total 0.3 mg/dl (0.2-1); Globulin 4.2 gm/dl (2.5-4.0); Total Protein 7.2 gm/dl (6.4-8.2)
[2021-02-04] MEDS: LORazepam 0.5 MG TAB PO PRN ×2 (08:36→13:42)
[2021-02-04] MEDS: NICOTINE POLACRILEX 2 MG GUM MT PRN (08:36)
[2021-02-04] MEDS: GABAPENTIN 600 MG TAB PO SCH (08:38)
[2021-02-04] MEDS: buPROPion SR 150 MG TABCR PO SCH ×2 (08:38→20:34)
[2021-02-04] MEDS: FLUTICASONE FUROATE 200MCG 14 PUFFS/INHALER INH SCH (08:39)
[2021-02-04] MEDS: FOLIC ACID 1 MG TAB PO SCH (08:53)
[2021-02-04] MEDS: THIAMINE HCL 100 MG TAB PO SCH (08:53)
[2021-02-04] MEDS: levETIRAcetam 500 MG TAB PO SCH (08:53)
[2021-02-04] MEDS: NICOTINE 21 MG/24 HR TDSY TD SCH (08:53)
[2021-02-04] MEDS: PANTOprazole 40 MG TAB PO SCH (08:53)
[2021-02-04] MEDS: ENOXAPARIN INJ 40 MG/0.4 ML SYR SQ SCH (08:53)
--- NOTE | 2021-02-04 10:27 | CT Scan Report ---
CT OF THE ABDOMEN AND PELVIS WITHOUT CONTRAST CLINICAL HISTORY: Abdominal pain. COMPARISON STUDY: No previous studies for comparison. TECHNIQUE: Axial images of the abdomen and pelvis were obtained without IV contrast. Images were revi ewed in the axial, sagittal, and coronal planes. Automated exposure control was utilized for the jose dy. A dose lowering technique was utilized adhering to the principles of ALARA. FINDINGS: Lung bases are unremarkable. No pneumatosis, free air or portal venous gas is present. Eval uation of the abdomen and pelvis is suboptimal on this unenhanced exam. There are gallstones within t he gallbladder without evidence for acute cholecystitis. Unenhanced images of the liver, spleen, adre nal glands, left kidney and pancreas are unremarkable. The right kidney is not visualized. A few appe ndicoliths within the appendix are noted. Caliber of the appendix is at the upper limits of normal. T here is no periappendiceal infiltration. There is no evidence for acute appendicitis on this unenhanc ed exam. Caliber and wall thickness of small and large bowel are normal. There is sigmoid diverticulo sis without evidence for acute diverticulitis. Bladder wall thickening is noted. No acute fracture or suspicious lesion is identified within the visualized skeletal structures. IMPRESSION: 1. No acute process within the abdomen or pelvis. Exam compromised given lack of IV contrast. 2. Cholelithiasis. No evidence for acute cholecystitis. 3. A few appendicoliths within the appendix without evidence for acute appendicitis. 4. Nonvisualization of the right kidney. 5. Bladder wall thickening which could be correlated with urinalysis. ACT 112: Negative or not required by law. Electronically signed by: Rahat Holland M.D. 02/04/2021 10:25 AM
[2021-02-04] MEDS: diazePAM 5 MG TABLET PO PRN (10:38)
[2021-02-04] MEDS: GABAPENTIN 300 MG CAP PO SCH ×2 (13:22→20:34)
--- NOTE | 2021-02-04 14:55 | Hospitalist Progress Note ---
Date of Service February 04, 2021 delayed entry date of service noted above Assessment & Plan (1) Suicidal ideations: (2) Cellulitis of right middle finger: (3) Left elbow pain: (4) Alcohol intoxication: (5) Seizure disorder: (6) PTSD (post-traumatic stress disorder): (7) Anxiety: (8) HTN (hypertension): (9) Alcohol abuse: (10) Tobacco abuse: (11) Asthma: (12) DVT prophylaxis: (13) Bipolar affective: Plan: This is a 35-year-old female who has significant past medical history of drug abuse, current alcohol abuse, tobacco abuse, solitary kidney, asthma, rheumatoid arthritis, hepatitis C completed treatment, bipolar disorder, PTSD, anxiety, hypertension, seizure disorder, GERD who presents to ED at the referral from [facility] for medical clearance. Suicidal ideation Currently denies thoughts of harming self or others, but prior to arrival wanted to kill self, but no plan Suicide precautions One-to-one observation Consulted psychiatry, no further intervention at this time Right third finger cellulitis Open wound to volar aspect of third finger at PIP History of MRSA Neutropenia She does not meet SIRS criteria on admission Administer broad-spectrum IV antibiotics with daptomycin and aztreonam secondary to neutropenia and history of MRSA BC negative so far wound culture Staph- MRSA digit and hand edema, erythema improving wound healing well continue Dapto Neutropenia Thrombocytopenia unclear etiology Peripheral smear nonspecific discussed with Dr. Dillard loom fixer- recommend checking Folate, Vit b 12, LDH: normal monitor closely Intermittent Abdominal Pain suspect underlying gastritis, ulcer CT abdomen: cholelithiasis Gen Surg consulted Left elbow pain secondary to prior fall [address] arm: 1. Small well-corticated ossific density adjacent to the coronoid process of the ulna consistent with an old nonunited fracture. 2. Punctate ossific density posterior to the radial head consistent with an age- indeterminate chip type fracture. 3. No definite elbow effusion to suggest an acute injury. 4. No acute fractures within the mid to distal forearm. 5. Stable 6 mm linear radiopaque foreign body within the superficial soft tissues dorsal to the distal ulna. per Ortho: CT scan demonstrates small sized type I subacute conoid fracture and a more recent/acute avulsion fracture radial head. Continue nonoperative management with a sling, NSAIDs as needed if approved by medical service and alternate heat and cold for comfort. Follow-up with her orthopedic surgeon in her home area upon return. Alcohol abuse Alcohol level on admission 117.3, last drink this morning a half a pint of [facility] protocol, placed on gabapentin taper home dose of gabapentin is 300mg tid Prn IV ativan no signs of overt withdrawal at this time monitor HTN on amlodipine hold for now in setting of low blood pressure Asthma pt with wheezing on exam that does improve with coughing albuterol nebs TID Flovent started improving Seizure Disorder continue keppra, no seizure for > 10 years seizure precautions Tobacco Abuse nicotine patch and gum encourage smoking cessation Bipolar depression PTSD Anxiety hx of IVDA Suboxone therapy Continue Wellbutrin Patient wishes to be admitted to [facility] due to increased depression and for medication management as she previously had been on antipsychotics continue suboxone - PDMP verified Dispo: Med tele, pt wishing to go to [facility] for psychiatric eval/med management when medically cleared PCP: None FULL CODE plan of care discussed with patient in detail and at length all questions answered she is understanding, agreeable, comfortable with the plan of care Admission and Anticipated Discharge Date Admission Date: February 01, 2021 Subjective ff up for 3rd digit cellulitis, etc seen resting in bed, with PUBLIC RELATIONS SUPERVISOR Song at bedside throughgout whole encounter patient tearful, anxious reassured spoke with significant other over the phone in the presence of patient per her request able to obtain more history explained plan of care in detail and at length to them plan of care discussed with patient in detail and at length all questions answered they are understanding, agreeable, comfortable with the plan of care patient reports RUQ pain poor oral intake occasional chills r hand feels much better reports L shoulder pain, poor ROM no chest pain, dyspnea, palpitations, dizziness reports anxiety no suicidal ideation no other symptoms Review of Systems Review of Systems: all noted and negative except for above Physical Exam Physical Exam: General- oriented x 3, not in distress, speaks in sentences with no effort or accessory muscle use Eyes- anicteric Neck- no JVD Lungs- clear breath sounds bilaterally, no rales/wheezes Heart- normal rate, regular rhythm; no murmurs Abdomen- normal bowel sounds, nondistended, soft,mild RUQ tenderness no Luis's sign Extremities- no pretibial edema, no calf tenderness right hand- no edema, 3rd digit minimal edema, no redness/warmth/tenderness Neuro- alert, oriented x 3; no gross focal neurologic deficits Skin- warm & dry Results & Data Results & Data ([facility]) Vital Signs (Past 12 Hours) Vital Signs Temp Pulse Pulse Resp BP Pulse Ox 02/04/21 11:48 37 C 84 16 105/66 96 02/04/21 07:37 88 02/04/21 06:06 37.0 C 82 18 108/71 96 all noted and reviewed including below
--- NOTE | 2021-02-04 15:17 | XRay Report ---
XR shoulder LT min 2V routine CLINICAL HISTORY: shoulder pain, r/o fracture COMPARISON: None FINDINGS: Alignment of the left shoulder is anatomic. There is no acute fracture. No osseous lesion. Joint spaces are preserved. IMPRESSION: Unremarkable left shoulder radiographs. ACT 112: Negative or not required by law. Electronically signed by: Rahat Holland M.D. 02/04/2021 3:16 PM
[2021-02-04] MEDS: ACETAMINOPHEN 325 MG TAB PO PRN ×2 (15:54→22:14)
[2021-02-04] MEDS: ADVANCED PROBIOTIC 1250 MG CAPSULE PO SCH (15:55)
[2021-02-04] MEDS: LORazepam 1 MG TAB PO PRN ×2 (17:49→23:31)
[2021-02-04] MEDS: KETOROLAC TROMETHAMINE 15 MG/ML VIAL IV PRN (18:51)
--- NOTE | 2021-02-04 19:19 | Surgery Consultation ---
Date of Consultation February 04, 2021 Assessment & Plan (1) Abdominal pain: The etiology of patient's abdominal pain is unclear at this time. The differential diagnosis for this problem is is broad. General surgery was specifically asked to evaluate the patient concerning for gallstones and appendicolith noted on CT scan. At the present time there is no laboratory or radiologic evidence of cholecystitis, appendicitis, or other etiologies requiring surgical intervention. Due to the fact that the patient has gallstones noted on CT scan I will check a gallbladder ultrasound for further evaluation of this organ. If the patient's gallbladder ultrasound is negative for cholecystitis it may be beneficial to have gastroenterology evaluate the patient for other etiologies of her abdominal pain. Supervising Physician Co-Signing Physician Notes discuss with AMRIT Gonzales. 35 y/o female here for medical clearance to the [facility], now with abdominal pain. Ct with gallstone, US with marginal gbw thickening, possible cholecystitis. Will eval in AM, possible cholecystectomy vs. HIDA. Heme consult for neutropenia. History of Present Illness Reason for Consultation: Abdominal pain Attending Physician: Luis Leiva MD History of Present Illness This is a 35-year-old female who was admitted to [facility] from the emergency department at the referral from the [facility] for medical clearance. Patient is currently being evaluated by psychiatry for suicidal ideation. Patient was also noted to have cellulitis of her right third finger that she is being treated for. During patient's admission she has been exp ressing complaints of abdominal pain which we delineated below. Because of this we are asked to see the patient for surgical consultation. I did question the patient about her abdominal pain. The patient says that she has had generalized abdominal pain on and off for several weeks. She said that she cannot quite pinpoint where her abdominal pain is the worst but seems to be in the right upper quadrant and epigastric area. She denies any radiation of the pain when she gets abdominal pain she does have nausea vomiting. She denies any hematemesis. She denies any fevers, shakes, chills. She does report loose stools at times. She denies any bright red blood per rectum or hematochezia but does report melanotic stools from time to time. Patient says that she has had an upper endoscopy at [facility] where she was noted to have gastric ulcers. She also has had a colonoscopy in the past and to the best of her knowledge this did not demonstrate any significant pathology. The study was also performed at [facility]. Patient does report using recreational drugs and smokes marijuana. Her most recent marijuana use was approximately 4 days ago. She does report alcohol use. In addition the patient reports approximately 20 pound weight loss over the past 2 months. Regarding previous abdominal surgeries the patient does report a tubal ligation. Patient did have labs and imaging which I independently reviewed. Concerning abdominal imaging the patient has had a CT scan of the abdomen and pelvis. No acute process was identified on this study. Patient was noted to have gal lstones but there is no evidence for acute cholecystitis. She was also noted to have some appendicoliths however there is no evidence of acute appendicitis. A chest x-ray was performed that showed no evidence of acute disease in the chest and there were specifically no free air noted. Most recent CBC was from today which showed a white blood cell count of 3.84. Patient was also noted to be elie tropenic with a neutrophil count of 1.33. Her hemoglobin, hematocrit, and platelet count were noted to be within normal range. Chemistry profile from today showed sodium was one thirty-five. Her potassium, BUN, and creatinine were within normal range. The patient's bilirubin, transaminases, and alkaline phosphatase were noted to be within normal range. A test from 02/01/2021 was noted to be negative. A urinalysis from 02/02/2021 was not indicative of infection. A Covid test was performed on 02/01/2021 and was noted be negative. Hepatitis C antibody has been ordered and is pending. At the time of my interview the patient was resting comfortably in bed and she was in no distress. Allergies Allergy/AdvReac Type Severity Reaction Status Date / Time cephalexin Allergy Unknown ANAPHYLAXIS Unverified 11/02/13 11:41 vancomycin Allergy Unknown RED, Verified 11/02/13 11:41 ITCHY, HOT Home Medications Medication Instructions Recorded Confirmed Type albuterol sulfate 90 mcg/actuation 1 inh INHALATION QID PRN 02/01/21 02/01/21 History aerosol inhaler (ProAir HFA) amlodipine 10 mg tablet (Norvasc) 10 mg PO DAILY 02/01/21 02/01/21 History buprenorphine 8 mg-naloxone 2 mg 1 film SUBLINGUAL BID 02/01/21 02/01/21 History sublingual film bupropion HCl 150 mg tablet,12 hr 150 mg PO BID 02/01/21 02/01/21 History sustained-release diazepam 5 mg tablet 5 mg PO DAILY PRN 02/01/21 02/01/21 History gabapentin 300 mg capsule 300 mg PO TID 02/01/21 02/01/21 History levetiracetam 1,000 mg tablet 1,000 mg PO DAILY 02/01/21 02/01/21 History omeprazole 40 mg capsule,delayed 40 mg PO DAILY 02/01/21 02/01/21 History release Patient History Medical History Alcohol abuse Anxiety Asthma Bipolar affective (11/02/13) Drug abuse GERD (gastroesophageal reflux disease) Hepatitis C HTN (hypertension) MRSA (methicillin resistant staph aureus) culture positive PTSD (post-traumatic stress disorder) Rheumatoid arthritis Seizure disorder Solitary kidney, congenital Tobacco abuse Surgical History History of fasciotomy Right forearm secondary to compartment syndrome History of tonsillectomy and adenoidectomy History of tubal ligation Family History Mother Lung cancer Grandfather (Maternal) Lung cancer Sister Ovarian cancer Social History Smoking Status: Current every day smoker Tobacco Type: Cigarettes packs per day: 1; Years Smoked: 20; Cigarettes Per Day: 12; Second Hand Exposure: Yes; Tobacco Cessation Education Requested by Patient: No Hx Alcohol Use: Yes Alcohol type: hard liquor Alcohol type Comment: 4-5 x a week, 1/2pint [facility] Alcohol Intake Frequency: 4 or More x per/Week Hx Substance Use: Yes Non-Prescribed Medications: Crack / Cocaine, Heroin, IV Drugs and Methamphetamines Last Used Substance: Days (ago) Substance Use Type Other:: Did state took someons methadone Preferred Language: Sammarinese Communication Ability: Effective Electron Beam Photo Mask Maker Required: No Beliefs That Will Affect Care: None marital status: Single Current Living Situation: Spouse Current Living Situation Comment: lives with boyfriend How many Children do You have: 0 Feels Safe at Home: Yes and Hesitant to Answer Safety Concerns: Feels Safe At This Time Assistive Devices: None Assistive Devices Comment: Glasses are broken Review of Systems Constitutional: no fever and no chills Eyes: no diplopia Ear, Nose, Mouth, Throat: no ear pain Respiratory: no cough and no dyspnea Cardiovascular: no chest pain Gastrointestinal: as per Subjective / HPI, + abdominal pain, + nausea, + vomiting, + diarrhea/loose stools and + melena; no blood in stools Genitourinary: no dysuria Musculoskeletal: no back pain Integumentary: no rash Neurologic: no localized weakness Physical Exam Constitutional: well developed and well nourished; no acute distress Eyes: + anicteric sclerae; no conjunctival abnormality ENMT: Ears: no hearing impairment and no external ear abnormality Mouth: no oropharynx abnormality Neck: trachea midline Respiratory: normal respiratory effort; no respiratory distress and no labored breathing Cardiovascular: Rate/Rhythm: regular rate and regular rhythm Gastrointestinal (Abdomen): Patient's abdomen is mildly distended. Bowel sounds are present. There is no tympany to percussion. I do not appreciate any hernias. Patient did have some pain with palpation in a generalized fashion but this appeared to be greatest in the right upper quadrant epigastric area. Luis sign was noted be negative. There is no rebound tenderness or guarding. Musculoskeletal: No calf tenderness. Skin: no rashes Neurologic: moves all extremities Psychiatric: A+Ox3, euthymic affect Results & Data ([facility]) Vital Signs (Past 12 Hours) Vital Signs Temp Pulse Pulse Resp BP Pulse Ox 02/04/21 16:14 108 H 02/04/21 15:19 36.7 C 88 22 111/75 97 02/04/21 11:48 37 C 84 16 105/66 96 02/04/21 07:37 88 PG Care Time/CCT Total # of Minutes Spent Total Time Spent with Patient: Total time spent is greater than 50% in coordination of care (as documented) at patient's floor/unit and/or counseling patient: Coding Level of Care Code 73351 Inpt Consult Level 5 Diagnoses Abdominal pain R10.9
[2021-02-04] MEDS: DAPTOmycin 200 MG in SYRINGE 0 ML IV SCH (20:35)
--- NOTE | 2021-02-04 21:37 | Ultrasound Report ---
US gallbladder CLINICAL HISTORY: abdominal pain TECHNIQUE: Multiple real-time sonographic images of the right upper quadrant were obtained. Comparison: None available at the time of this dictation. FINDINGS: The liver is diffusely homogenous with normal contour and echogenicity. No focal mass lesions are se en. No intrahepatic ductal dilatation is seen. The gallbladder is contracted, stones are seen. Th e wall is minimally thickened, measuring 0.3 cm. There is no pericholecystic fluid present. The commo n duct measures 0.7 mm in diameter at the level of the hepatic artery. A sonographic Luis's sign w as elicited by the canvas baster. The visualized portions of the pancreas appear normal. The right kidney is not seen. 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 No ascites or free fluid is seen in Gray's pouch. IMPRESSION: Cholelithiasis with common bile duct dilation, wall thickening, and positive sonographic Luis's sig n, concerning for acute cholecystitis. ACT 112: Negative or not required by law. Electronically signed by: Loyd Burgos M.D. 02/04/2021 9:36 PM
[2021-02-05] MEDS: KETOROLAC TROMETHAMINE 15 MG/ML VIAL IV PRN ×2 (03:30→10:40)
[2021-02-05] MEDS: BUPRENORPHINE/NALOXONE 8/2 MG TAB SL SCH ×2 (06:36→19:40)
[2021-02-05] MEDS ORDERED: GABAPENTIN 600 MG TAB PO SCH (08:00)
[2021-02-05] MEDS: LORazepam 1 MG TAB PO PRN ×3 (08:08→20:00)
[2021-02-05] MEDS: ACETAMINOPHEN 325 MG TAB PO PRN (08:08)
[2021-02-05] MEDS: NICOTINE 21 MG/24 HR TDSY TD SCH (08:09)
[2021-02-05] MEDS: ADVANCED PROBIOTIC 1250 MG CAPSULE PO SCH (08:11)
[2021-02-05] MEDS: buPROPion SR 150 MG TABCR PO SCH ×2 (08:11→22:29)
[2021-02-05] MEDS: GABAPENTIN 300 MG CAP PO SCH ×3 (08:12→22:29)
[2021-02-05] MEDS: FLUTICASONE FUROATE 200MCG 14 PUFFS/INHALER INH SCH (08:12)
[2021-02-05] MEDS: levETIRAcetam 500 MG TAB PO SCH (08:16)
[2021-02-05] MEDS: FOLIC ACID 1 MG TAB PO SCH (08:16)
[2021-02-05] MEDS: THIAMINE HCL 100 MG TAB PO SCH (08:17)
[2021-02-05] MEDS: PANTOprazole 40 MG TAB PO SCH (08:18)
[2021-02-05 09:02] LABS: Eosinophils # (auto) 0.14 K/uL (0-0.5); Eosinophils % (auto) 3.2 %; Hematocrit (blood only) 44.6 % (37-47); Lymphocytes # (auto) 0.92 K/uL (1.2-3.4); Lymphocytes % (auto) 21.1 %; Mean Corpuscular Hgb Conc 33.6 g/dL (32-36); Mean Platelet Volume 11.3 fL (7.4-10.4); Monocytes # (auto) 0.42 K/uL (0.11-0.59); Monocytes % (auto) 9.7 %; Neutrophils # (auto) 2.87 K/uL (1.4-6.5); Platelet Count 189 K/uL (130-400); RDW Standard Deviation 46.5 fL (36.4-46.3); Red Blood Count 4.55 M/uL (4.2-5.4); White Blood Count 4.35 K/uL (4.8-10.8)
[2021-02-05 09:39] LABS: Albumin Globulin Ratio 0.8 (0.9-2); Albumin Level 3.3 gm/dl (3.4-5.0); BUN Creatinine Ratio 14.2 (10-20); Bilirubin,Total 0.4 mg/dl (0.2-1); Calcium 9.6 mg/dl (8.5-10.1); Creatinine Clr Calc Pharmacy 50.1 ml/min; Est GFR (African American) 65.2 ml/min; Est GFR (Non-African American) 56.2 ml/min; Globulin 4.4 gm/dl (2.5-4.0); Total Protein 7.7 gm/dl (6.4-8.2)
[2021-02-05] MEDS: SODIUM CHLORIDE 0.9% 1000ML 1,000 ML IV SCH ×2 (10:00→22:42)
[2021-02-05] MEDS: diazePAM 5 MG TABLET PO PRN (10:04)
[2021-02-05 10:54] LABS: Potassium 4.4 mmol/L (3.5-5.1)
[2021-02-05] MEDS: ENOXAPARIN INJ 40 MG/0.4 ML SYR SQ SCH (10:55)
[2021-02-05] MEDS ORDERED: ROCURONIUM BROMIDE 10 MG/ML 5 ML VIAL IV ONE (13:40)
[2021-02-05] MEDS ORDERED: DEXAMETHASONE SOD INJ 4 MG/ML VIAL ONE (13:40)
[2021-02-05] MEDS ORDERED: fentaNYL citrate 100 MCG/2 ML VIAL ONE (13:40)
[2021-02-05] MEDS ORDERED: ONDANSETRON INJ 2 MG/ML 2 ML VIAL ONE (13:40)
[2021-02-05] MEDS ORDERED: LIDOCAINE 2% 2 ML VIAL/AMP(20MG/ML) INFIL ONE (13:40)
[2021-02-05] MEDS ORDERED: PROPOFOL IV EMULSION 10 MG/ML 20 ML VIAL IV ONE (13:40)
[2021-02-05] MEDS ORDERED: MIDAZOLAM HCL 1 MG/ML 2ML VIAL ONE ×2 (13:41→15:28)
[2021-02-05] MEDS ORDERED: ePHEDrine sulfate 50 MG/ML AMP IV PRN (13:46)
[2021-02-05] MEDS ORDERED: ATROPINE SULFATE 0.1 MG/ML 10ML SYR IV PRN (13:46)
[2021-02-05] MEDS ORDERED: ONDANSETRON INJ 2 MG/ML 2 ML VIAL IV PRN (13:46)
[2021-02-05] MEDS ORDERED: PHENYLEPHRINE 100MCG/ML 5ML SYR IV PRN (13:46)
--- NOTE | 2021-02-05 13:52 | Anesthesiology Consultation ---
Date of Service February 05, 2021 Assessment & Plan (1) Encounter for pre-operative examination: Chart Review Chart Review: Acceptable Risk for Surgery (necessary surgery) and Patient NOT seen in Pre Admission Testing Consults Requested none History Surgery Operation Date: 02/05/21 10:20 Proposed Procedures p Laparoscopic Cholecystectomy, Possible Open Cholecystectomy,Possible Appendectomy - [place], , FACS Height/Weight Height: 5 ft 2 in Weight: 59.1 kg Allergies Allergy/AdvReac Type Severity Reaction Status Date / Time cephalexin Allergy Unknown ANAPHYLAXIS Unverified 11/02/13 11:41 vancomycin Allergy Unknown RED, Verified 11/02/13 11:41 ITCHY, HOT Medications Home Medications Medication Instructions Recorded Confirmed Last Taken albuterol sulfate 90 mcg/actuation 1 inh INHALATION QID PRN 02/01/21 02/01/21 Un known aerosol inhaler (ProAir HFA) amlodipine 10 mg tablet (Norvasc) 10 mg PO DAILY 02/01/21 02/01/21 Unknown buprenorphine 8 mg-naloxone 2 mg 1 film SUBLINGUAL BID 02/01/21 02/01/21 Unknown sublingual film bupropion HCl 150 mg tablet,12 hr 150 mg PO BID 02/01/21 02/01/21 Unknown sustained-release diazepam 5 mg tablet 5 mg PO DAILY PRN 02/01/21 02/01/21 Unknown gabapentin 300 mg capsule 300 mg PO TID 02/01/21 02/01/21 Unknown levetiracetam 1,000 mg tablet 1,000 mg PO DAILY 02/01/21 02/01/21 Unknown omeprazole 40 mg capsule,delayed 40 mg PO DAILY 02/01/21 02/01/21 Unknown release Active Medications Generic Name Dose Route Start Last Admin Trade Name Freq PRN Reason Stop Dose Admin Acetaminophen 650 mg 02/02/21 00:24 02/05/21 08:08 Acetaminophen 325 Mg Tab PO 03/04/21 00:23 650 mg Q4H PRN Administration Pain or Fever Buprenorphine/Naloxone 1 tab 02/04/21 07:00 02/05/21 06:36 Buprenorphine/Naloxone 8/2 Mg Tab SL 03/06/21 06:59 1 tab BID@0700,1900 TONY Administration Bupropion HCl 150 mg 02/02/21 00:24 02/05/21 08:11 Bupropion Sr 150 Mg Tabcr PO 03/04/21 00:23 150 mg BID TONY Administration Diazepam 5 mg 02/02/21 00:24 02/05/21 10:04 Diazepam 5 Mg Tablet PO 03/04/21 00:23 5 mg DAILY PRN Administration Anxiety Enoxaparin Sodium 40 mg 02/02/21 09:00 02/05/21 10:55 Enoxaparin Inj 40 Mg/0.4 Ml Syr SQ 03/04/21 08:59 Not Given Q24H TONY Fluticasone Furoate 1 puffs 02/03/21 14:00 02/05/21 08:12 Fluticasone Furoate 200mcg 14 Puffs/Inhaler INH 03/05/21 13:59 1 puffs DAILY TONY Administration Protocol Folic Acid 1 mg 02/02/21 00:24 02/05/21 08:16 Folic Acid 1 Mg Tab PO 03/04/21 00:23 1 mg QAM TONY Administration Gabapentin 300 mg 02/04/21 14:00 02/05/21 08:12 Gabapentin 300 Mg Cap PO 03/06/21 13:59 300 mg TID TONY Administration Daptomycin 200 mg/ Syringe 4 mls @ 2 mls/min 02/02/21 20:00 02/04/21 20:35 IV 02/08/21 19:59 2 mls/min Q24H TONY Administration Protocol Sodium Chloride 1,000 mls @ 80 mls/hr 02/05/21 10:00 02/05/21 10:00 Nss 1000ml IV 03/07/21 09:59 Not Given .[id number] TONY Ketorolac Tromethamine 15 mg 02/04/21 18:34 02/05/21 10:40 Ketorolac Tromethamine 15 Mg/Ml Vial IV 02/09/21 18:33 15 mg Q6H PRN Administration Pain Lactobacillus Acidoph/Casei/Rhamnos 2 cap 02/04/21 14:45 02/05/21 08:11 Advanced Probiotic 1250 Mg Capsule PO 03/06/21 14:44 2 cap DAILY TONY Administration Levetiracetam 1,000 mg 02/02/21 09:00 02/05/21 08:16 Levetiracetam 500 Mg Tab PO 03/04/21 08:59 1,000 mg DAILY TONY Administration Lorazepam 1 mg 02/04/21 14:36 02/05/21 08:08 Lorazepam 1 Mg Tab PO 03/05/21 14:45 1 mg Q4H PRN Administration Anxiety Miscellaneous 1 ea 02/02/21 08:59 02/05/21 08:17 Remove Nicoderm Patch N/A 03/04/21 08:58 1 ea DAILY@[id number] TONY Administration Nicotine 21 mg 02/02/21 00:24 02/05/21 08:09 Nicotine 21 Mg/24 Hr Tdsy TD 03/04/21 00:23 21 mg QAM TONY Administration Nicotine Polacrilex 1 piece 02/03/21 15:50 02/04/21 08:36 Nicotine Polacrilex 2 Mg Gum MT 03/05/21 15:49 1 piece Q4H PRN Administration nicotine craving Ondansetron HCl 4 mg 02/02/21 00:24 02/04/21 17:58 Ondansetron Inj 2 Mg/Ml 2 Ml Vial IV 03/04/21 00:23 4 mg Q6H PRN Administration Nausea Pantoprazole Sodium 40 mg 02/02/21 09:00 02/05/21 08:18 Pantoprazole 40 Mg Tab PO 03/04/21 08:59 40 mg DAILY TONY Administration Thiamine HCl 100 mg 02/02/21 00:24 02/05/21 08:17 Thiamine Hcl 100 Mg Tab PO 03/04/21 00:23 100 mg QAM TONY Administration Past Medical History Medical History Alcohol abuse Anxiety Asthma Bipolar affective (11/02/13) Drug abuse GERD (gastroesophageal reflux disease) Hepatitis C HTN (hypertension) MRSA (methicillin resistant staph aureus) culture positive PTSD (post-traumatic stress disorder) Rheumatoid arthritis Seizure disorder Solitary kidney, congenital Tobacco abuse Past Family History Family History Mother Lung cancer Grandfather (Maternal) Lung cancer Sister Ovarian cancer Past Surgical History Surgical History History of fasciotomy Right forearm secondary to compartment syndrome History of tonsillectomy and adenoidectomy History of tubal ligation Social History Smoking Status: Current every day smoker tobacco type: cigarettes Smoking cigarettes per day: 12 Hx Alcohol Use: Yes Alcohol type: hard liquor alcohol intake frequency: 3 or more drinks per day Alcohol Intake Frequency Comment: States drinks 5 days a week a pint of liquor Hx Substance Use: Yes substance use type: former substance user Substance Use Type Other:: Did state took someons methadone Last Used Substance: Days (ago) Physical Exam Vital Signs Last Vital Signs Temp 36.6 C 02/05/21 03:35 Pulse 76 02/05/21 07:43 Resp 18 02/05/21 03:35 BP 99/66 L 02/05/21 03:35 Pulse Ox 98 02/05/21 03:35 Testing Laboratory Results 02/05/21 08:12 02/05/21 10:15 Urine Color Cancelled 02/02/21 01:25 Urine Color Yellow 02/02/21 01:25 Urine Appearance Cancelled 02/02/21 01:25 Urine Appearance Clear (Clear) 02/02/21 01:25 Urine pH 5.5 (4.5-7.5) 02/02/21 01:25 Urine pH Cancelled 02/02/21 01:25 Ur Specific [place] 1.014 (1.000-1.030) 02/02/21 01:25 Ur Specific [place] Cancelled 02/02/21 01:25 Urine Protein Cancelled 02/02/21 01:25 Urine Protein Negative (Negative) 02/02/21 01:25 Urine Glucose (UA) Cancelled 02/02/21 01:25 Urine Glucose (UA) Negative (Negative) 02/02/21 01:25 Urine Ketones Cancelled 02/02/21 01:25 Urine Ketones Negative (Negative) 02/02/21 01:25 Urine Nitrite Cancelled 02/02/21 01:25 Urine Nitrite Negative (Negative) 02/02/21 01:25 Ur Leukocyte Esterase Cancelled 02/02/21 01:25 Ur Leukocyte Esterase Negative (Negative) 02/02/21 01:25 Urine WBC (Auto) Cancelled 02/02/21 01:25 Urine RBC (Auto) Cancelled 02/02/21 01:25 U Hyaline Cast (Auto) Cancelled 02/02/21 01:25 U Epithel Cells (Auto) Cancelled 02/02/21 01:25 Urine Bacteria (Auto) Cancelled 02/02/21 01:25 02/02/21 Unknown Gram Stain - Final Finger,Right Middle Wound Culture - Final Staph aureus MRSA 02/01/21 19:16 Aerobic Blood Culture - Preliminary Blood No growth in Aerobic bottle after 48 hours. Anaerobic Blood Culture - Preliminary No growth in Anaerobic bottle after 48 hours. 02/01/21 19:24 Aerobic Blood Culture - Preliminary Blood No growth in Aerobic bottle after 48 hours. Anaerobic Blood Culture - Final 02/02/21 01:25 POC Ur Test Cancelled Chest X-Ray Date: 02/02/21 SINGLE VIEW CHEST CLINICAL HISTORY: Wheezing and rhonchi. FINDINGS: An AP, portable, upright chest radiograph is obtained. No prior studies are available for comparison at the time of dictation. The ca rdiomediastinal silhouette is unremarkable. The lungs and pleural spaces are clear. No pneumothorax is seen. The bony thorax is grossly intact. IMPRESSION: No active disease in the chest. ACT 112: Negative or not required by law. Electronically signed by: Mario Winston M.D. 02/02/2021 8:57 AM Dictated: 02/02/21 [id number]
--- NOTE | 2021-02-05 14:39 | Surgery Progress Note ---
Date of Service February 05, 2021 Assessment & Plan (1) Acute calculous cholecystitis: Plan: 35-year-old female with what appears to be chronic or acute on chronic cholecystitis secondary to gallstones. This appears like this is likely the etiology of her abdominal pain. I did inform her that some of her symptoms may not improve with cholecystectomy. Also, she had an appendicolith with slightly enlarged appendix on CT imaging. We will evaluate the appendix during the surgery and potentially perform an appendectomy. Plan for laparoscopic cholecystectomy with possible cholangiogram, possible laparoscopic appendectomy The risks of the procedure were discussed to include but not limited to bleeding, infection, retained stone, bile leak, damage surrounding structures including common bile duct, need for future more extensive surgery, conversion to open, failure to treat symptoms, and the risk of anesthesia (2) Abdominal pain: (3) Suicidal ideations: (4) Cellulitis: (5) Alcohol abuse: (6) PTSD (post-traumatic stress disorder): (7) Bipolar affective: Admission and Anticipated Discharge Date Admission Date: February 01, 2021 Subjective 35-year-old female with history of opioid dependence and suicidal ideation, initially evaluated [facility], admitted for orthopedic infection. During her stay she is expressed recent history of right upper quadrant abdominal pain with nausea, worse after eating especially fatty or greasy foods. CT scan of her abdomen revealed cholelithiasis as well as a upper limits of normal appendix with appendicoliths but no periappendiceal inflammation. She had an ultrasound performed which showed mild thickening of the gallbladder wall to 3 mm with a positive sonographic Luis sign. Physical Exam Constitutional: WD/WN, vitals as above Respiratory: normal respiratory effort, lungs clear to auscultation Cardiovascular: RRR, no murmur, no edema Gastrointestinal (Abdomen): Percussion/Palpation: + abdomen tender (Tender to palpation in the right upper quadrant epigastrium) and abdomen soft; no guarding, abdomen not rigid and no hepatosplenomegaly Results & Data ([facility]) Vital Signs (Past 12 Hours) Vital Signs Temp Pulse Pulse Resp BP Pulse Ox 02/05/21 07:43 76 02/05/21 03:35 36.6 C 75 18 99/66 L 98 Laboratory Results Laboratory Results - last 24 hr 02/04/21 02/04/21 02/05/21 08:44 08:44 08:12 WBC 4.35 L RBC 4.55 Hgb 15.0 Hct 44.6 MCV 98.0 MCH 33.0 MCHC 33.6 RDW Std Deviation 46.5 H RDW Coeff of Mariama 13.0 Plt Count 189 MPV 11.3 H Immature Gran % (Auto) 0.0 Neut % (Auto) 66.0 Lymph % (Auto) 21.1 [place] % (Auto) 9.7 Eos % (Auto) 3.2 Baso % (Auto) 0.0 Neut # (Auto) 2.87 Lymph # (Auto) 0.92 L [place] # (Auto) 0.42 Eos # (Auto) 0.14 Baso # (Auto) 0.00 Immature Gran # (Auto) 0.00 Sodium Potassium Chloride Carbon Dioxide Anion Gap BUN Creatinine Est Cr Clr Drug Dosing Est GFR ( Amer) Est GFR (Non-Af Amer) BUN/Creatinine Ratio Glucose Calcium Total Bilirubin AST ALT Alkaline Phosphatase Total Protein Albumin Globulin Albumin/Globulin Ratio Hepatitis C Antibody Prelim Pos A HCV RNA (PCR) IUs/ml Pending HCV RNA PCR log IUs/ml Pending 02/05/21 02/05/21 08:12 10:15 WBC RBC Hgb Hct MCV MCH MCHC RDW Std Deviation RDW Coeff of Mariama Plt Count MPV Immature Gran % (Auto) Neut % (Auto) Lymph % (Auto) [place] % (Auto) Eos % (Auto) Baso % (Auto) Neut # (Auto) Lymph # (Auto) [place] # (Auto) Eos # (Auto) Baso # (Auto) Immature Gran # (Auto) Sodium 134 L Potassium 4.4 Chloride 103 Carbon Dioxide 25 Anion Gap 6.0 BUN 18 Creatinine 1.24 H Est Cr Clr Drug Dosing 50.1 Est GFR ( Amer) 65.2 Est GFR (Non-Af Amer) 56.2 BUN/Creatinine Ratio 14.2 Glucose 93 Calcium 9.6 Total Bilirubin 0.4 AST 20 ALT 21 Alkaline Phosphatase 79 Total Protein 7.7 Albumin 3.3 L Globulin 4.4 H Albumin/Globulin Ratio 0.8 L Hepatitis C Antibody HCV RNA (PCR) IUs/ml HCV RNA PCR log IUs/ml US gallbladder CLINICAL HISTORY: abdominal pain TECHNIQUE: Multiple real-time sonographic images of the right upper quadrant were obtained. Comparison: None available at the time of this dictation. FINDINGS: The liver is diffusely homogenous with normal contour and echogenicity. No focal mass lesions are seen. No intrahepatic ductal dilatation is seen. The gallbladder is contracted, stones are seen. The wall is minimally thickened, measuring 0.3 cm. There is no pericholecystic fluid present. The common duct measures 0.7 mm in diameter at the level of the hepatic artery. A sonographic Luis's sign was elicited by the presser first. The visualized portions of the pancreas appear normal. The right kidney is not seen. 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 No ascites or free fluid is seen in Gray's pouch. IMPRESSION: Cholelithiasis with common bile duct dilation, wall thickening, and positive sonographic Luis's sign, concerning for acute cholecystitis. Diagnostic Findings CT OF THE ABDOMEN AND PELVIS WITHOUT CONTRAST CLINICAL HISTORY: Abdominal pain. COMPARISON STUDY: No previous studies for comparison. TECHNIQUE: Axial images of the abdomen and pelvis were obtained without IV contrast. Images were reviewed in the axial, sagittal, and coronal planes. Automated exposure control was utilized for the study. A dose lowering technique was utilized adhering to the principles of ALARA. FINDINGS: Lung bases are unremarkable. No pneumatosis, free air or portal venous gas is present. Evaluation of the abdomen and pelvis is suboptimal on this unenhanced exam. There are gallstones within the gallbladder without evidence for acute cholecystitis. Unenhanced images of the liver, spleen, adrenal glands, left kidney and pancreas are unremarkable. The right kidney is not visualized. A few appendicoliths within the appendix are noted. Caliber of the appendix is at the upper limits of normal. There is no periappendiceal infiltration. There is no evidence for acute appendicitis on this unenhanced exam. Caliber and wall thickness of small and large bowel are normal. There is sigmoid diverticulosis without evidence for acute diverticulitis. Bladder wall thickening is noted. No acute fracture or suspicious lesion is identified within the visualized skeletal structures. IMPRESSION: 1. No acute process within the abdomen or pelvis. Exam compromised given lack of IV contrast. 2. Cholelithiasis. No evidence for acute cholecystitis. 3. A few appendicoliths within the appendix without evidence for acute appendicitis. 4. Nonvisualization of the right kidney. 5. Bladder wall thickening which could be correlated with urinalysis. PG Care Time/CCT Total # of Minutes Spent Total Time Spent with Patient: Total time spent is greater than 50% in coordination of care (as documented) at patient's floor/unit and/or counseling patient: Coding Level of Care Code 39100 Inpt Consult Level 3 Diagnoses Acute calculous cholecystitis K80.00 Abdominal pain R10.9 Suicidal ideations R45.851 Cellulitis L03.90 Site of cellulitis: unspecified site Alcohol abuse F10.10 PTSD (post-traumatic stress disorder) F43.10 Bipolar affective F31.9 (1) Cellulitis Site of cellulitis: unspecified site Qualified Code(s): L03.90 - Cellulitis, unspecified
[2021-02-05] MEDS ORDERED: BUPIVACAINE 0.5 % 5 MG/1 ML MPF 30ML VIAL ONE (14:43)
[2021-02-05] MEDS ORDERED: CLINDAMYCIN 600 MG/54 ML D5W IV ONE (15:20)
[2021-02-05] MEDS ORDERED: KETAMINE 50 MG/5 ML SYRINGE ONE (15:29)
[2021-02-05] MEDS ORDERED: CLINDAMYCIN 600 MG/54 ML BAG IV SCH (15:30)
[2021-02-05] MEDS ORDERED: OPTIRAY 300 IV ONE (16:07)
[2021-02-05] MEDS ORDERED: DexMEDEtomidine HCL IV 100 MCG/ML VIAL ONE (16:13)
[2021-02-05] MEDS ORDERED: PROMETHAZINE HCL INJ 25 MG/ML 1 ML VIAL ONE (16:16)
--- NOTE | 2021-02-05 16:25 | Hospitalist Progress Note ---
Date of Service February 05, 2021 Assessment & Plan (1) Suicidal ideations: (2) Cellulitis of right middle finger: (3) Left elbow pain: (4) Alcohol intoxication: (5) Seizure disorder: (6) PTSD (post-traumatic stress disorder): (7) Anxiety: (8) HTN (hypertension): (9) Alcohol abuse: (10) Tobacco abuse: (11) Asthma: (12) DVT prophylaxis: (13) Bipolar affective: Plan: This is a 35-year-old female who has significant past medical history of drug abuse, current alcohol abuse, tobacco abuse, solitary kidney, asthma, rheumatoid arthritis, hepatitis C completed treatment, bipolar disorder, PTSD, anxiety, hypertension, seizure disorder, GERD who presents to ED at the referral from [facility] [place] for medical clearance. Suicidal ideation Currently denies thoughts of harming self or others, but prior to arrival wanted to kill self, but no plan Suicide precautions One-to-one observation Consulted psychiatry, no further intervention at this time Right third finger cellulitis Open wound to volar aspect of third finger at PIP History of MRSA Neutropenia She does not meet SIRS criteria on admission Administer broad-spectrum IV antibiotics with daptomycin and aztreonam secondary to neutropenia and history of MRSA BC negative so far wound culture Staph- MRSA digit and hand edema, erythema improving wound healing well continue Dapto Neutropenia Thrombocytopenia unclear etiology Peripheral smear nonspecific discussed with Dr. Dillard cage shift manager- recommend checking Folate, Vit b 12, LDH: normal -- neutropenia and thrombocytopenia resolved Cholelithiasis CT abdomen: cholelithiasis Gen Surg consulted surgery today no medical contraindication to proceed with surgery Left elbow pain secondary to prior fall 3 weeks ago Left shoulder pain CT arm: 1. Small well-corticated ossific density adjacent to the coronoid process of the ulna consistent with an old nonunited fracture. 2. Punctate ossific density posterior to the radial head consistent with an age- indeterminate chip type fracture. 3. No definite elbow effusion to suggest an acute injury. 4. No acute fractures within the mid to distal forearm. 5. Stable 6 mm linear radiopaque foreign body within the superficial soft tissues dorsal to the distal ulna. per Ortho: CT scan demonstrates small sized type I subacute conoid fracture and a more recent/acute avulsion fracture radial head. Continue nonoperative management with a sling, NSAIDs as needed if approved by medical service and alternate heat and cold for comfort. Follow-up with her orthopedic surgeon in her home area upon return. L shoulder xray: no fracture Ortho reconsulted Alcohol abuse Alcohol level on admission 117.3, last drink this morning a half a pint of [facility] protocol, placed on gabapentin taper home dose of gabapentin is 300mg tid Prn IV ativan no signs of overt withdrawal at this time monitor HTN on amlodipine hold for now in setting of low blood pressure Asthma pt with wheezing on exam that does improve with coughing albuterol nebs TID Flovent started improving Seizure Disorder continue keppra, no seizure for > 10 years seizure precautions Tobacco Abuse nicotine patch and gum encourage smoking cessation Bipolar depression PTSD Anxiety hx of IVDA Suboxone therapy Continue Wellbutrin Patient wishes to be admitted to [facility] [place] due to increased depression and for medication management as she previously had been on antipsychotics continue suboxone - PDMP verified Dispo: Med tele, pt wishing to go to [facility] for psychiatric eval/med management when medically cleared PCP: None FULL CODE plan of care discussed with patient in detail and at length all questions answered she is understanding, agreeable, comfortable with the plan of care Admission and Anticipated Discharge Date Admission Date: February 01, 2021 Subjective ff up for cellulitis abdominal pain, etc seen with RADHA Oglesby at bedside throughout whole encounter states she is having significant RUQ pain today no nausea no chills no chest pain, dyspnea, palpitations, dizziness hand/finger pain resolved (+) L shoulder pain, poor ROM still has l elbow pain no other symptoms denies suicidal ideation has anxiety Review of Systems Review of Systems: all noted and negative except for above Physical Exam Physical Exam: General- oriented x 3, not in distress, speaks in sentences with no effort or accessory muscle use Eyes- anicteric Neck- no JVD Lungs- clear breath sounds bilaterally, no rales/wheezes Heart- normal rate, regular rhythm; no murmurs Abdomen- normal bowel sounds, nondistended, soft, (+) RUQ tenderness no Muprhy's sign Extremities- no pretibial edema, no calf tenderness Neuro- alert, oriented x 3; no gross focal neurologic deficits Skin- warm & dry Results & Data Results & Data ([facility]) Vital Signs (Past 12 Hours) Vital Signs Temp Pulse Pulse Resp BP Pulse Ox 02/05/21 14:59 36.9 C 68 18 107/55 L 96 02/05/21 07:43 76 all noted and reviewed including below
[2021-02-05] MEDS ORDERED: BUPIVACAINE LIPOSOME 1.3% 266 MG/20 ML VIAL ONE (16:28)
--- NOTE | 2021-02-05 16:44 | Operative Report ---
PG Post Operative Report Pre & Post Diagnosis Operation Date: 02/05/21 10:20 Pre-Op Diagnosis: Acute on chronic cholecystitis Post-Op Diagnosis: Acute on chronic cholecystitis I identified the patient and participated in the time-out.: Yes Procedure Operation Date: 02/05/21 10:20 Actual Procedures p Laparoscopic Cholecystectomy, Cholangiogram(Not Applicable) - Pillo Paniagua DO, FACS Surgeon Pillo Paniagua DO, PHOEBE Sheet [employer] Superintendent Roberto Wakefield Estimated Blood Loss 5 Findings Consistent with Post-Op Diagnosis Diagnostic laparoscopy revealed retrocecal appendix, visualized proximal third of the appendix appeared normal. There was no inflammation in the right lower quadrant. Gallbladder had adhesions to it were taken down with blunt dissection and cautery. Acute on chronic cholecystitis. Critical view of safety obtained, cholangiogram performed with no filling defects. Cystic duct and artery doubly clipped and divided. Specimens Gallbladder Anesthesia Type MAC Spinal Regional Complications none Disposition Accompanied Patient To Recovery: No Disposition: Recovery Room Indications 35-year-old female with history of right upper quadrant abdominal pain and fausto lithiasis with signs of possible cholecystitis on ultrasound. She also has a borderline enlarged appendix with some appendicoliths. Plan for laparoscopic cholecystectomy with possible cholangiogram, and possible laparoscopic appendectomy. The risks of the procedure were discussed, all questions were answered, and the patient agreed to proceed with surgery as planned. Description of Procedure The patient was properly identified, consented, and taken to the operating room where she was placed in the supine position. General endotracheal anesthesia was induced. SCDs and a safety belt were placed. Preoperative antibiotics were administered. The patient's abdomen was prepped and draped in the standard sterile fashion. A surgical timeout was performed and all parties were in agreement that this was the correct patient and procedure to be performed and we continued as planned. An incision was made superior and to the left of the umbilicus overlying the rectus muscle and the Veress needle was inserted. Saline drop test confirmed entry into the peritoneum. The abdomen was insufflated with carbon dioxide which the patient tolerated without incident. The abdomen was then entered using the Optiview technique and a 5 mm trocar. The laparoscope was inserted and no damage from initial trocar or Veress needle placement was noted, no gross abnormalities were noted within the 4 quadrants of the abdomen. An 11 mm port was placed in the subxiphoid position and two 5 mm ports were then placed in the right subcostal position. The patient was placed in Trendelenburg position and rotated towards the left. We examined the right lower quadrant and noted that the patient had a retrocecal appendix. The visualized proximal third of the appendix appeared completely normal and there was no signs of inflammation in the right lower quadrant. At this point we elected not to perform an appendectomy and proceeded with cholecystectomy. The patient was placed in reverse Trendelenburg position and rotated towards the left. The gallbladder was acutely and chronically mildly inflamed. There were some filmy adhesions between the duodenum and gallbladder which were taken down with a combination of blunt dissection and cautery. No damage to the bowel was evident. The dome of the gallbladder was retracted towards the left upper christiano drant and the infundibulum was retracted toward the right lower quadrant revealing Calot's triangle. Peritoneal attachments were taken down with electrocautery and blunt dissection. The cystic duct and artery were circumferentially dissected. A window of safety was obtained showing the cystic duct entering the gallbladder with no aberrant structures noted. The Rea cholangiocatheter was then used to perform an intraoperative cholangiogram which showed no filling defects, and good filling of the duodenum and hepatic radicals with contrast. The cystic duct and artery were doubly clipped and divided. The gallbladder was then lifted off the gallbladder fossa with electrocautery. The gallbladder was placed in an Endo Catch bag and removed through the subxiphoid port site. The right upper quadrant was irrigated and hemostasis was found to be good. 5 mm trochars were removed under direct visualization and the abdomen was allowed to collapse. The subxiphoid port site fascia was closed with 0 Vicryl suture utilizing the David-Demetrio device prior to removal of the ports. The wound was irrigated, and the skin of all ports was closed with 4-0 Monocryl subcuticular sutures. Dermabond was placed over the wounds. The patient was extubated in the operating room and taken to the PACU where she recovered without apparent incident. All sponge, instrument and needle counts were correct at the conclusion of the procedure. The patient tolerated the procedure well. The physician's temporary office assistant was present and scrubbed for the entirety of the case and was essential in positioning the patient, prepping and draping, retraction and exposure, driving the laparoscope, removal of the gallbladder, closure the incisions, and placement of the dressings. I attest to the content of the Intraoperative Record and any orders documented therein. Any exceptions are noted below.
--- NOTE | 2021-02-05 16:57 | Fluoroscopy Report ---
FL cholangiogram OR CLINICAL HISTORY: Cholangiogram TECHNIQUE: 2 views were obtained with the C-arm in the OR with the above procedure. Total fluoroscopy time was 7.8 seconds. Comparison: None available at the time of this dictation. FINDINGS/IMPRESSION: Intraoperative images of cholangiogram were obtained. Please correlate with intraoperative fluoroscopy and operative report. ACT 112: Negative or not required by law. Electronically signed by: Loyd Burgos M.D. 02/05/2021 4:55 PM
[2021-02-05] MEDS: fentaNYL citrate 100 MCG/2 ML VIAL IV PRN ×4 (17:22→17:37)
[2021-02-05] MEDS ORDERED: HYDROmorphone INJ 1 MG/ML SYRINGE IV STA (17:39)
[2021-02-05] MEDS ORDERED: KETOROLAC 30 MG/ML VIAL IV ONE (17:40)
[2021-02-05] MEDS ORDERED: KETOROLAC 30 MG/ML VIAL ONE (17:45)
[2021-02-05] MEDS: HYDROmorphone INJ 1 MG/ML SYRINGE IV PRN ×4 (17:48→18:03)
[2021-02-05] MEDS: LABETALOL HCL IV 5 MG/ML 20ML IV PRN ×3 (18:07→18:17)
[2021-02-05] MEDS ORDERED: HYDROmorphone INJ 0.5 MG/0.5 ML SYR IV STA (18:15)
[2021-02-05] MEDS ORDERED: HYDROmorphone INJ 0.5 MG/0.5 ML SYR ONE (18:16)
--- NOTE | 2021-02-05 18:18 | Anesthesiology Progress Note ---
Date of Service February 05, 2021 Anesthesia Post Procedure Vital Signs Vital Signs: Temp Pulse Pulse Pulse Resp BP Pulse Ox 02/05/21 18:10 36.4 C L 60 18 151/90 H 99 02/05/21 18:00 62 18 151/92 H 100 02/05/21 17:50 70 18 145/82 H 98 02/05/21 17:40 78 20 140/89 99 02/05/21 17:30 75 20 154/102 H 99 02/05/21 17:20 78 20 151/108 H 100 02/05/21 17:10 76 16 163/99 H 100 02/05/21 17:00 38.6 C H 76 12 154/118 H 99 02/05/21 16:43 70 02/05/21 14:59 36.9 C 68 18 107/55 L 96 02/05/21 07:43 76 02/05/21 03:35 36.6 C 75 18 99/66 L 98 02/05/21 00:00 72 02/04/21 23:22 36.7 C 73 20 107/66 97 Pain Intensity Right Finger: Pain Intensity: 3 Transfer of Care Handoff Completed per policy Notes Mental Status: alert / awake / arousable Patient Amnestic to Procedure: Yes Nausea / Vomiting: adequately controlled Pain: adequately controlled and improving with treatment Airway Patency, RR, SpO2: stable & adequate BP & HR: stable & adequate Hydration State: stable & adequate Anesthetic Complications: no major complications apparent and Pt Satisfied with anesthetic care Notes: The patient has a significant substance abuse history. She now appears to be resting comfortably after receiving fentanyl and Dilaudid. Her SBP is 150s/90s for which she is receiving labetalol. Her other vital signs are stable.
[2021-02-05] MEDS: DAPTOmycin 200 MG in SYRINGE 0 ML IV SCH (22:29)
[2021-02-05] MEDS: oxyCODONE HCL IR 5 MG TAB (IMMEDIATE RELEASE) PO PRN (22:55)
[2021-02-06] MEDS: LORazepam 1 MG TAB PO PRN ×2 (04:02→18:15)
[2021-02-06] MEDS: ACETAMINOPHEN 325 MG TAB PO PRN (04:02)
[2021-02-06] MEDS: HYDROmorphone INJ 0.5 MG/0.5 ML SYR IV PRN ×3 (05:44→19:44)
[2021-02-06] MEDS: BUPRENORPHINE/NALOXONE 8/2 MG TAB SL SCH ×2 (06:25→18:15)
[2021-02-06 07:41] LABS: MDA negative; MDEA negative; MDMA (Ecstasy) Urine, Confirm negative; Marijuana Quant, GCMS Urine 215 ng/mL (<5); Methadone, Ur Metabolite 2220 ng/mL (<100)
[2021-02-06] MEDS: levETIRAcetam 500 MG TAB PO SCH (08:02)
[2021-02-06] MEDS: NICOTINE 21 MG/24 HR TDSY TD SCH (08:03)
[2021-02-06] MEDS: FOLIC ACID 1 MG TAB PO SCH (08:04)
[2021-02-06] MEDS: GABAPENTIN 300 MG CAP PO SCH ×3 (08:04→22:06)
[2021-02-06] MEDS: FLUTICASONE FUROATE 200MCG 14 PUFFS/INHALER INH SCH (08:05)
[2021-02-06] MEDS: THIAMINE HCL 100 MG TAB PO SCH (08:05)
[2021-02-06] MEDS: buPROPion SR 150 MG TABCR PO SCH ×2 (08:05→22:05)
[2021-02-06] MEDS: oxyCODONE HCL IR 5 MG TAB (IMMEDIATE RELEASE) PO PRN ×3 (08:17→22:04)
[2021-02-06] MEDS: PANTOprazole 40 MG TAB PO SCH (08:18)
[2021-02-06 08:35] LABS: Albumin Level 3.2 gm/dl (3.4-5.0); BUN Creatinine Ratio 13.1 (10-20); Calcium 9.5 mg/dl (8.5-10.1); Creatinine Clr Calc Pharmacy 60.9 ml/min; Est GFR (African American) 82.5 ml/min; Est GFR (Non-African American) 71.2 ml/min; Potassium 4.5 mmol/L (3.5-5.1)
[2021-02-06 08:37] LABS: Albumin Globulin Ratio 0.7 (0.9-2); Bilirubin,Total 0.4 mg/dl (0.2-1); Globulin 4.3 gm/dl (2.5-4.0); Total Protein 7.5 gm/dl (6.4-8.2)
[2021-02-06 08:39] LABS: Eosinophils # (auto) 0.03 K/uL (0-0.5); Eosinophils % (auto) 0.3 %; Hematocrit (blood only) 42.6 % (37-47); Hemoglobin 14.6 g/dL (12.0-16.0); Immature Granulocytes # (auto) 0.03 K/uL (0.00-0.02); Immature Granulocytes % (auto) 0.3 %; Lymphocytes # (auto) 0.83 K/uL (1.2-3.4); Lymphocytes % (auto) 9.5 %; Mean Corpuscular Hemoglobin 33.6 pg (25-34); Mean Corpuscular Hgb Conc 34.3 g/dL (32-36); Mean Corpuscular Volume 98.2 fL (80-100); Mean Platelet Volume 11.1 fL (7.4-10.4); Monocytes # (auto) 0.71 K/uL (0.11-0.59); Monocytes % (auto) 8.1 %; Neutrophils # (auto) 7.14 K/uL (1.4-6.5); Neutrophils % (auto) 81.8 %; Platelet Count 163 K/uL (130-400); RDW Coefficient of Variation 12.6 % (11.5-14.5); RDW Standard Deviation 45.2 fL (36.4-46.3); Red Blood Count 4.34 M/uL (4.2-5.4); White Blood Count 8.74 K/uL (4.8-10.8)
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
--- NOTE | 2021-02-06 09:55 | Surgery Progress Note ---
Date of Service February 06, 2021 Assessment & Plan (1) Acute calculous cholecystitis: Plan: POD 1 lap fausto stable post op ok for d/c from our perspective she plans to return to [place], will arrange for f/u Admission and Anticipated Discharge Date Admission Date: February 01, 2021 Supervising Physician Co-Signing Physician Notes s&e, agree with above. POD#1 lap fausto, doing well, sore. abd soft, appropriately ttp. okay to d/c f/u in 2 weeks at home or here. rx for pain meds, further management by suboxone provider. okay to nsaid's for a day or 2 after surgery. return precautions given, call with questions or concerns. Subjective some pain along right rib line, tolerating diet Physical Exam Gastrointestinal (Abdomen): Inspection/Auscultation: abdomen normal to inspection and + abdominal surgical incision (dry) Percussion/Palpation: abdomen soft Results & Data ([facility]) Vital Signs (Past 12 Hours) Vital Signs Temp Pulse Pulse Resp BP Pulse Ox 02/06/21 07:54 77 02/06/21 07:52 71 18 123/79 98 02/06/21 04:00 36.4 C L 97 H 18 94/64 L 96 02/05/21 23:00 100 H 02/05/21 22:52 36.5 C 101 H 18 106/72 97 PG Care Time/CCT Total # of Minutes Spent Total Time Spent with Patient: Total time spent is greater than 50% in coordination of care (as documented) at patient's floor/unit and/or counseling patient: Coding Level of Care Code None Diagnoses Acute calculous cholecystitis K80.00
[2021-02-06 10:27] LABS: Hepatitis C Vira RNA (Log) PCR <1.18 NOT DETECTED Log IU/mL (NOT DETECTED); Hepatitis C Viral RNA by PCR <15 NOT DETECTED IU/mL (NOT DETECTED)
[2021-02-06] MEDS: ADVANCED PROBIOTIC 1250 MG CAPSULE PO SCH (11:20)
[2021-02-06] MEDS: diazePAM 5 MG TABLET PO PRN (11:21)
[2021-02-06] MEDS: CLINDAMYCIN HCL 150 MG CAP PO SCH ×2 (11:24→18:15)
--- NOTE | 2021-02-06 13:52 | Psychiatric Progress Note ---
Date of Service February 06, 2021 Impression / Recommendations Impression 35 yo woman with a history of depression, PTSD and substance use admitted medically for cellulitis and then required a cholecystectomy yesterday for whom psychiatry was consulted because she was initially having SI and wishing to seek inpatient psychiatric treatment. Following an extended medical admission she is no longer experiencing SI, mood has improved, she is future-oriented, bright affect, able to engage in safety planning and wishes to return home once she is medically cleared. From a psychiatric standpoint her acute risk for self-harm is now low and she is not deemed to be at imminent risk of harm to self. Chronically she is at high risk especially if she resumes alcohol use. Discussed and reviewed safety plan and goals of avoiding substance use and reaching out to supports. Also discussed resources and ways to add additional protective factors and positive supports to her life to reduce elements of chronic risk. (1) Suicidal ideations: (2) Alcohol abuse: (3) PTSD (post-traumatic stress disorder): (4) Seizure disorder: -discontinue 1:1 -resume outpatient psychiatric medications -safe to discharge from a psychiatric standpoint -she was provided with a copy of her safety plan to take with her l Risk Factors Assessment Do You Have Access To A Gun?: No Interval History Identifying Information 35 yo woman with a history of depression, PTSD and substance use admitted medically for cellulitis and then required a cholecystectomy yesterday for whom psychiatry was consulted because she was initially having SI and wishing to seek inpatient psychiatric treatment. Chief Complaint "I want to go home and be with my cats, I'm excited for Halloween". Review of Systems Notes Sleep stable, appetite stable, pain from surgery Subjective Subjective Chart and events of hospitalization reviewed and discussed with psychiatric liason who has been seeing the patient daily. Iona is recovering from her cholecystectomy which occurred last night. She reports she has not experienced any SI in days and is no longer interested in seeking voluntary psychiatric treatment at this time. Her mood has improved and she would like to recover from her surgery at home and be around supports and her cats. She is excited about halloween and shares pictures of her cats and details about the costumes she plans to dress them in. She feels safe returning home and is able to describe coping skills she would use should she begin to feel more depressed again and what she would do if she developed SI- "come to the hospital or call 911". She's been working on CBT-based workbook we use on the inpatient psychiatry unit that we provided to her and has found this helpful. She agreed to and filled out a safety plan which she will put somewhere visible at home should her SI return. She has no access to guns. Spent more than 20 minutes in the care and coordination of this patient of which greater than 50% was dedicated to counseling and coordination of care. Procedures Performed Operation Date: 02/05/21 10:20 Actual Procedures p Laparoscopic Cholecystectomy, Cholangiogram(Not Applicable) - Pillo Paniagua, DO, FACS Physical Exam Psychiatric Orientation: alert and oriented x 3 Apperance: appropriately dressed and appropriately groomed Eye Contact: good eye contact Motor Behavior: no abnormal motor movements Speech: normal rate/rhythm/volume of speech Affect: euthymic affect Mood: no depressed mood and no anxious mood Thought Process: goal directed thought process Thought Content: reality based without delusions Suicidal Thoughts: denies suicidal thoughts Homicidal Thoughts: denies homicidal thoughts Hallucinations: no auditory hallucinations and no visual hallucinations Cognition: recent memory grossly intact, remote memory grossly intact, attention grossly intact and language grossly intact Estimated Intelligence: consistent with education level Insight: good insight Judgement: good judgement Vital Signs (Past 24 Hours) Last Vital Signs Temp 36.4 C L 02/06/21 04:00 Pulse 80 02/06/21 11:58 Resp 18 02/06/21 11:58 BP 115/77 02/06/21 11:58 Pulse Ox 97 02/06/21 11:58 Results & Data ([facility]) Laboratory Results Laboratory Results - last 24 hr 02/02/21 02/04/21 02/05/21 01:25 08:44 15:10 WBC RBC Hgb Hct MCV MCH MCHC RDW Std Deviation RDW Coeff of Mariama Plt Count MPV Immature Gran % (Auto) Neut % (Auto) Lymph % (Auto) [place] % (Auto) Eos % (Auto) Baso % (Auto) Neut # (Auto) Lymph # (Auto) [place] # (Auto) Eos # (Auto) Baso # (Auto) Immature Gran # (Auto) Sodium Potassium Chloride Carbon Dioxide Anion Gap BUN Creatinine Est Cr Clr Drug Dosing Est GFR ( Amer) Est GFR (Non-Af Amer) BUN/Creatinine Ratio Glucose Calcium Total Bilirubin AST ALT Alkaline Phosphatase Total Protein Albumin Globulin Albumin/Globulin Ratio POC Ur Test NEG U Methadone Metabolites 2220 H Ur Methadone Confirm 4630 H Urine MDEA negative MDMA negative Urine MDMA negative U Marijuana THC Carboxy 215 H Drug Screen Comment SEE NOTE HCV RNA (PCR) IUs/ml <15 NOT DETECTED HCV RNA PCR log IUs/ml <1.18 NOT DETECTED 02/06/21 02/06/21 07:44 07:44 WBC 8.74 RBC 4.34 Hgb 14.6 Hct 42.6 MCV 98.2 MCH 33.6 MCHC 34.3 RDW Std Deviation 45.2 RDW Coeff of Mariama 12.6 Plt Count 163 MPV 11.1 H Immature Gran % (Auto) 0.3 Neut % (Auto) 81.8 Lymph % (Auto) 9.5 [place] % (Auto) 8.1 Eos % (Auto) 0.3 Baso % (Auto) 0.0 Neut # (Auto) 7.14 H Lymph # (Auto) 0.83 L [place] # (Auto) 0.71 H Eos # (Auto) 0.03 Baso # (Auto) 0.00 Immature Gran # (Auto) 0.03 H Sodium 135 L Potassium 4.5 Chloride 109 H Carbon Dioxide 22 Anion Gap 4.0 BUN 13 Creatinine 1.02 Est Cr Clr Drug Dosing 60.9 Est GFR ( Amer) 82.5 Est GFR (Non-Af Amer) 71.2 BUN/Creatinine Ratio 13.1 Glucose 81 Calcium 9.5 Total Bilirubin 0.4 AST 29 ALT 32 Alkaline Phosphatase 79 Total Protein 7.5 Albumin 3.2 L Globulin 4.3 H Albumin/Globulin Ratio 0.7 L POC Ur Test U Methadone Metabolites Ur Methadone Confirm Urine MDEA MDMA Urine MDMA U Marijuana THC Carboxy Drug Screen Comment HCV RNA (PCR) IUs/ml HCV RNA PCR log IUs/ml Current Inpatient Medications Current Inpatient Medications: Current Inpatient Medications Acetaminophen (Acetaminophen 325 Mg Tab) 650 mg PO Q4H PRN PRN Reason: Pain or Fever Stop: 03/04/21 00:23 Last Admin: 02/06/21 04:02 Dose: 650 mg Documented by: Al Hydrox/Mg Hydrox/Simethicone (Aluminum/Magnesium Susp 30 Ml Udc) 15 ml PO Q4H PRN PRN Reason: Dyspepsia Stop: 03/04/21 00:23 Albuterol (Albuterol Hfa 8 Gm Inhaler) 1 puffs INH QID PRN PRN Reason: sob/wheezing Stop: 03/04/21 01:03 Albuterol (Albuterol 0.083% Nebu Soln 3 Ml Vial) 2.5 mg NEB TID PRN PRN Reason: Shortness Of Breath Or Wheezing Stop: 03/03/21 20:59 Buprenorphine/Naloxone (Buprenorphine/Naloxone 8/2 Mg Tab) 1 tab SL BID@0700,1900 [facility] Stop: 03/06/21 06:59 Last Admin: 02/06/21 06:25 Dose: 1 tab Documented by: Bupropion HCl (Bupropion Sr 150 Mg Tabcr) 150 mg PO BID TONY Stop: 03/04/21 00:23 Last Admin: 02/06/21 08:05 Dose: 150 mg Documented by: Clindamycin HCl (Clindamycin Hcl 150 Mg Cap) 450 mg PO Q8H TONY Stop: 02/13/21 09:59 Last Admin: 02/06/21 11:24 Dose: 450 mg Documented by: Diazepam (Diazepam 5 Mg Tablet) 5 mg PO DAILY PRN PRN Reason: Anxiety Stop: 03/04/21 00:23 Last Admin: 02/06/21 11:21 Dose: 5 mg Documented by: Fluticasone Furoate (Fluticasone Furoate 200mcg 14 Puffs/Inhaler) 1 puffs INH DAILY [facility]; Protocol Stop: 03/05/21 13:59 Last Admin: 02/06/21 08:05 Dose: 1 puffs Documented by: Folic Acid (Folic Acid 1 Mg Tab) 1 mg PO QAM [facility] Stop: 03/04/21 00:23 Last Admin: 02/06/21 08:04 Dose: 1 mg Documented by: Gabapentin (Gabapentin 300 Mg Cap) 300 mg PO TID [facility] Stop: 03/06/21 13:59 Last Admin: 02/06/21 08:04 Dose: 300 mg Documented by: Hydromorphone HCl (Hydromorphone Inj 0.5 Mg/0.5 Ml Syr) 0.25 mg IV Q6H PRN PRN Reason: Pain Stop: 02/19/21 19:54 Last Admin: 02/06/21 12:58 Dose: 0.25 mg Documented by: Lactobacillus Acidoph/Casei/Rhamnos (Advanced Probiotic 1250 Mg Capsule) 2 cap PO DAILY [facility] Stop: 03/06/21 14:44 Last Admin: 02/06/21 11:20 Dose: 2 cap Documented by: Levetiracetam (Levetiracetam 500 Mg Tab) 1,000 mg PO DAILY [facility] Stop: 03/04/21 08:59 Last Admin: 02/06/21 08:02 Dose: 1,000 mg Documented by: Lorazepam (Lorazepam 1 Mg Tab) 1 mg PO Q4H PRN PRN Reason: Anxiety Stop: 03/05/21 14:45 Last Admin: 02/06/21 04:02 Dose: 1 mg Documented by: Magnesium Hydroxide (Magnesium Hydroxide Susp 30 Ml Udc) 30 ml PO Q12H PRN PRN Reason: Constipation Stop: 03/04/21 00:23 Miscellaneous (Remove Nicoderm Patch) 1 ea N/A DAILY@0859 [facility] Stop: 03/04/21 08:58 Last Admin: 02/06/21 08:05 Dose: 1 ea Documented by: Nicotine (Nicotine 21 Mg/24 Hr Tdsy) 21 mg TD QAM [facility] Stop: 03/04/21 00:23 Last Admin: 02/06/21 08:03 Dose: 21 mg Documented by: Nicotine Polacrilex (Nicotine Polacrilex 2 Mg Gum) 1 piece MT Q4H PRN PRN Reason: nicotine craving Stop: 03/05/21 15:49 Last Admin: 02/04/21 08:36 Dose: 1 piece Documented by: Ondansetron HCl (Ondansetron Inj 2 Mg/Ml 2 Ml Vial) 4 mg IV Q6H PRN PRN Reason: Nausea Stop: 03/04/21 00:23 Last Admin: 02/04/21 17:58 Dose: 4 mg Documented by: Oxycodone HCl (Oxycodone Hcl Ir 5 Mg Tab (Immediate Release)) 5 mg PO Q4H PRN PRN Reason: Pain Stop: 02/19/21 19:54 Last Admin: 02/06/21 08:17 Dose: 5 mg Documented by: Pantoprazole Sodium (Pantoprazole 40 Mg Tab) 40 mg PO DAILY [facility] Stop: 03/04/21 08:59 Last Admin: 02/06/21 08:18 Dose: 40 mg Documented by: Polyethylene Glycol (Polyethylene (Miralax) 17 Gm Pack) 17 gm PO DAILY PRN PRN Reason: Constipation Stop: 03/04/21 00:23 Thiamine HCl (Thiamine Hcl 100 Mg Tab) [facility] [place] Stop: 03/04/21 00:23 Last Admin: 02/06/21 08:05 Dose: 100 mg Documented by:
--- NOTE | 2021-02-06 14:39 | Hospitalist Progress Note ---
Date of Service February 06, 2021 Assessment & Plan (1) Suicidal ideations: (2) Cellulitis of right middle finger: (3) Left elbow pain: (4) Alcohol intoxication: (5) Seizure disorder: (6) PTSD (post-traumatic stress disorder): (7) Anxiety: (8) HTN (hypertension): (9) Alcohol abuse: (10) Tobacco abuse: (11) Asthma: (12) DVT prophylaxis: (13) Bipolar affective: Plan: This is a 35-year-old female who has significant past medical history of drug abuse, current alcohol abuse, tobacco abuse, solitary kidney, asthma, rheumatoid arthritis, hepatitis C completed treatment, bipolar disorder, PTSD, anxiety, hypertension, seizure disorder, GERD who presents to ED at the referral from [facility] for medical clearance. Suicidal ideation Currently denies thoughts of harming self or others, but prior to arrival expressing suicidal ideation, but no plan Suicide precautions One-to-one observation Consulted psychiatry, no further intervention at this time patient reevaluated 02/06- no suicidal ideation, ok to discharge home per Psych, safety plan prepared, patient fully aware patient prefers to go home for now, and will go back to [place] after a few days according to her Right third finger cellulitis- MRSA Open wound to volar aspect of third finger at PIP She does not meet SIRS criteria on admission Administer broad-spectrum IV antibiotics with daptomycin and aztreonam secondary to neutropenia and history of MRSA BC negative x 48 hours wound culture Staph- MRSA digit and hand edema, erythema mostly resolved wound healing well given Daptomycin x 6 days, will prescribe Clindamycin x 5 days to complete 10 day course ff up with PCP in 1 week advised to take probiotics daily and yogurt daily x 1 month Neutropenia Thrombocytopenia likely myelosuppresion from infection, antibiotics, alcohol Peripheral smear nonspecific discussed with Dr. 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 Hanley- no emerging hematologic malignancy ff up with PCP in 1 week repeat CBC in 1 week and regularly Acute Calculous Cholecystitis CT abdomen: cholelithiasis Gen Surg consulted s/p dante Carranza by Dr. Paniagua cleared for d/c ff up with PCP in 1 week no antibiotic needed per Gen Surg Left elbow pain secondary to prior fall 3 weeks ago Left shoulder pain CT arm: 1. Small well-corticated ossific density adjacent to the coronoid process of the ulna consistent with an old nonunited fracture. 2. Punctate ossific density posterior to the radial head consistent with an age- indeterminate chip type fracture. 3. No definite elbow effusion to suggest an acute injury. 4. No acute fractures within the mid to distal forearm. 5. Stable 6 mm linear radiopaque foreign body within the superficial soft tissues dorsal to the distal ulna. per Ortho: CT scan demonstrates small sized type I subacute conoid fracture and a more recent/acute avulsion fracture radial head. Continue nonoperative management with a sling, NSAIDs as needed if approved by medical service and alternate heat and cold for comfort. Follow-up with her orthopedic surgeon in her home area upon return. L shoulder xray: no fracture Discussed with Ortho, recommend left shoulder MRI, will order today Please discuss with Ortho Kirit MARCUS tomorrow regarding results continue Sling and ice for comfort patient to follow up with Ortho [place] Alcohol abuse Alcohol level on admission 117.3, last drink this morning a half a pint of [facility] AW protocol, placed on gabapentin taper home dose of gabapentin is 300mg tid Prn IV ativan no signs of overt withdrawal at this time -- continue usual Gabapentin strongly advised cessation HTN on amlodipine hold for now in setting of low blood pressure Asthma pt with wheezing on exam that does improve with coughing albuterol nebs TID Flovent started improving continue Flovent ff up with PCP in 1 week smoking cessation strongly encourage Seizure Disorder continue keppra, no seizure for > 10 years seizure precautions ordered Tobacco Abuse nicotine patch and gum encourage smoking cessation Bipolar depression PTSD Anxiety hx of IVDA Suboxone therapy Continue Wellbutrin and Valium as per Psych continue suboxone - PDMP verified management per #1 Dispo: home ff up with PCP in 1 week ff up with Psych, Ortho in 1 week plan of care discussed with patient in detail and at length all questions answered she is understanding, agreeable, comfortable with the plan of care patient requested prescription for Suboxone and Ativan I informed her that 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 for this She states she still has remaining Suboxone and Ativan at home She was disappointed, but she verbalized understanding and agreement Admission and Anticipated Discharge Date Admission Date: February 01, 2021 Subjective ff up for finger cellulitis, cholelithiasis, etc seen with RADHA Harrington at bedside throughout whole encounter seen resting in bed, comfortable, pleasant, calm, cooperative states she feels sore over the surgical sites but otherwise no nausea/vomiting, tolerating diet no fever/chills no hand/finger/joint pain mood is ok, no anxiety/depression/suicidal ideation no chest pain, dyspnea, palpitations, dizziness no other symptoms Review of Systems Review of Systems: all noted and negative except for above Physical Exam Physical Exam: General- oriented x 3, not in distress, speaks in sentences with no effort or accessory muscle use Eyes- anicteric Neck- no JVD Lungs- clear breath sounds bilaterally, no rales/wheezes Heart- normal rate, regular rhythm; no murmurs Abdomen- normal bowel sounds, nondistended, soft, nontender surgical sites with no bleeding/discharge mild tenderness on palpation of RUQ Extremities- no pretibial edema, no calf tenderness Neuro- alert, oriented x 3; no gross focal neurologic deficits Skin- warm & dry Results & Data Results & Data ([facility]) Vital Signs (Past 12 Hours) Vital Signs Temp Pulse Pulse Resp BP Pulse Ox 02/06/21 11:58 80 18 115/77 97 02/06/21 07:54 77 02/06/21 07:52 71 18 123/79 98 02/06/21 04:00 36.4 C L 97 H 18 94/64 L 96 all noted and reviewed including below
[2021-02-07] MEDS: NICOTINE POLACRILEX 2 MG GUM MT PRN ×2 (00:13→06:21)
[2021-02-07] MEDS: ACETAMINOPHEN 325 MG TAB PO PRN (00:18)
[2021-02-07] MEDS: LORazepam 1 MG TAB PO PRN ×3 (00:18→10:02)
[2021-02-07] MEDS: CLINDAMYCIN HCL 150 MG CAP PO SCH ×2 (02:09→09:17)
[2021-02-07] MEDS: HYDROmorphone INJ 0.5 MG/0.5 ML SYR IV PRN ×2 (02:10→08:19)
[2021-02-07] MEDS: oxyCODONE HCL IR 5 MG TAB (IMMEDIATE RELEASE) PO PRN ×2 (03:47→09:17)
[2021-02-07] MEDS: BUPRENORPHINE/NALOXONE 8/2 MG TAB SL SCH (06:21)
[2021-02-07 07:59] LABS: Basophils # (auto) 0.01 K/uL (0-0.2); Basophils % (auto) 0.2 %; Eosinophils # (auto) 0.21 K/uL (0-0.5); Eosinophils % (auto) 4.1 %; Hematocrit (blood only) 37.9 % (37-47); Hemoglobin 12.7 g/dL (12.0-16.0); Immature Granulocytes # (auto) 0.01 K/uL (0.00-0.02); Immature Granulocytes % (auto) 0.2 %; Lymphocytes # (auto) 1.62 K/uL (1.2-3.4); Lymphocytes % (auto) 31.8 %; Mean Corpuscular Hemoglobin 33.2 pg (25-34); Mean Corpuscular Hgb Conc 33.5 g/dL (32-36); Mean Corpuscular Volume 99.2 fL (80-100); Mean Platelet Volume 10.8 fL (7.4-10.4); Monocytes # (auto) 0.68 K/uL (0.11-0.59); Monocytes % (auto) 13.3 %; Neutrophils # (auto) 2.57 K/uL (1.4-6.5); Neutrophils % (auto) 50.4 %; Platelet Count 158 K/uL (130-400); RDW Coefficient of Variation 12.7 % (11.5-14.5); RDW Standard Deviation 46.1 fL (36.4-46.3); Red Blood Count 3.82 M/uL (4.2-5.4)
[2021-02-07 08:02] LABS: Albumin Globulin Ratio 0.7 (0.9-2); Albumin Level 2.8 gm/dl (3.4-5.0); BUN Creatinine Ratio 12.7 (10-20); Bilirubin,Total 0.2 mg/dl (0.2-1); Creatinine Clr Calc Pharmacy 71.3 ml/min; Est GFR (African American) 89.9 ml/min; Est GFR (Non-African American) 77.6 ml/min; Globulin 3.8 gm/dl (2.5-4.0); Potassium 4.3 mmol/L (3.5-5.1); Total Protein 6.6 gm/dl (6.4-8.2)
[2021-02-07] MEDS: NICOTINE 21 MG/24 HR TDSY TD SCH (08:23)
[2021-02-07] MEDS: buPROPion SR 150 MG TABCR PO SCH (08:25)
[2021-02-07] MEDS: FLUTICASONE FUROATE 200MCG 14 PUFFS/INHALER INH SCH (08:25)
[2021-02-07] MEDS: FOLIC ACID 1 MG TAB PO SCH (08:26)
[2021-02-07] MEDS: GABAPENTIN 300 MG CAP PO SCH (08:26)
[2021-02-07] MEDS: ADVANCED PROBIOTIC 1250 MG CAPSULE PO SCH (08:27)
[2021-02-07] MEDS: levETIRAcetam 500 MG TAB PO SCH (08:27)
[2021-02-07] MEDS: PANTOprazole 40 MG TAB PO SCH (08:28)
[2021-02-07] MEDS: THIAMINE HCL 100 MG TAB PO SCH (08:29)
--- NOTE | 2021-02-07 10:40 | Discharge Summary ---
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 tab PO DAILY Qty: 30 RF: 0 Continued diazepam 5 mg tablet 5 mg PO DAILY PRN (Reason: Anxiety) RF: 0 buprenorphine-naloxone 8-2 mg film 1 film sublingual BID RF: 0 gabapentin 300 mg Capsule 300 mg PO TID RF: 0 bupropion HCl 150 mg tablet sustained-release 12 hr 150 mg PO BID RF: 0 omeprazole 40 mg capsule,delayed release(DR/EC) 40 mg PO DAILY RF: 0 albuterol sulfate [ProAir HFA] 90 mcg/actuation Hfa Aerosol Inhaler 1 inh INHALATION QID PRN (Reason: sob/wheezing) RF: 0 levetiracetam 1,000 mg tablet 1,000 mg PO DAILY RF: 0 Discontinued amlodipine [Norvasc] 10 mg Tablet 10 mg PO DAILY RF: 0 Discharge Orders: Discharge Order (Routine); Ordered 02/07/21 Ordered By: Roger Yeung Admission Data Admit Date/Time: 02/01/21 18:34 Attending Provider: Roger Yeung Admit Provider: Luis Leiva Primary Care Provider: Deon Ventura Other Providers: Luis Leiva ; Nolan Driver ; Lucie Arreaga ; Alena Balderas ; Soumya Sánchez ; Chilango Muñoz ; Pillo P[place] ; Abiel Hanley V.
== END 2021-02-07 11:04 | disposition home or self-care (01) | DRG 876 ==
LOC: ED 14:21 → SUATTDRO 18:34 → 2W 18:34